=== PATIENT | female | born 1945 | race American Indian/Alaskan Native ===

== ENCOUNTER 2020-08-29 17:28 | Emergency (ER) | payer MEDICARE ==
[~2020-08-29] VITALS: Ht 167.6 cm; Wt 86.6 kg
[~2020-08-29 17:28] MED LIST: ALPRAZOLAM0.5 M1 PO; Ambien10 MG PO; BENADRYL25 MG PO; CLOP75 PO; Cardizem Cd180 MG PO; DILT120ERA PO; DILT90 PO; FLUO10 PO; GLIM2 PO; HYDCHL25 PO; HYDROCODONE-AC1 EAC5 PO; LEVSOD75 PO; LISINOPRIL PO; METFORMIN HCL500 M3 PO; NEURONTIN300 MG PO; NITRO-DUR1 EAC1 TOP; OXYACE5T PO; PRINIVIL10 MG PO; Pepcid40 MG PO; Prednisone20 MG PO; ZESTORETIC 20-121 EA PO; ZOLP10 PO
[2020-08-29 17:59] LABS: BASOPHILS ABSOLUTE AUTO 0.09 K/mm3 (0.00-0.23); BASOPHILS PERCENT AUTO 1 % (0-2); EOSINOPHILS ABSOLUTE AUTO 0.18 K/mm3 (0.00-0.68); EOSINOPHILS PERCENT AUTO 2 % (0-6); Hematocrit 37.9 % (33.0-51.0); Hemoglobin 12.3 g/dL (11.5-16.0); IMMATURE GRAN ABSOLUTE AUTO 0.02 K/mm3 (0.00-0.10); IMMATURE GRAN PERCENT AUTO 0 % (0-1); LYMPHOCYTES ABSOLUTE AUTO 2.94 K/mm3 (0.84-5.20); LYMPHOCYTES PERCENT AUTO 30 % (21-46); MONOCYTES ABSOLUTE AUTO 0.63 K/mm3 (0.16-1.47); MONOCYTES PERCENT AUTO 6 % (4-13); Mean Corpuscular HGB 28.8 pg (26.0-34.0); Mean Corpuscular HGB Conc 32.5 g/dL (31.5-36.5); Mean Corpuscular Volume 89 fL (80-100); Mean Platelet Volume 9.1 fL (9.1-12.4); NEUTROPHILS ABSOLUTE AUTO 6.02 K/mm3 (1.96-9.15); NEUTROPHILS PERCENT AUTO 61 % (41-73); Platelet Count 414 K/mm3 (150-400); RDW Coefficient Variation 12.3 % (11.7-14.2); RDW Standard Deviation 40.4 fL (35.1-46.3); Red Blood Cell Count 4.27 M/mm3 (3.80-5.20); White Blood Cell Count 9.88 K/mm3 (4.00-11.30)
[2020-08-29 18:16] LABS: International Normalized Ratio 0.92; Prothrombin Time Results 9.9 Sec (9.7-11.5)
[2020-08-29 18:18] LABS: Alanine Aminotransfer (ALT/SGP 15 U/L (12-78); Albumin, Blood 3.4 g/dL (3.4-5.0); Albumin/Globulin Ratio 0.7 (0.8-1.8); Alk Phos 105 U/L (50-136); Anion Gap 6 mmol/L (6-16); Aspartate Aminotrans (AST/SGOT 13 U/L (12-37); Bilirubin, Total 0.4 mg/dL (0.1-1.0); Blood Urea Nitrogen 29 mg/dL (8-24); Bun/Creatinine Ratio 31.1 (12.0-20.0); CO2, Blood 28 mmol/L (21-32); Chloride, Blood 104 mmol/L (98-108); Creatinine, Blood 0.93 mg/dL (0.40-1.00); Globulin, Blood 4.6 g/dL (2.2-4.0); Glomerular Filtration Rate >60 (60-); Glucose, Blood 150 mg/dL (70-99); Potassium, Blood 3.6 mmol/L (3.5-5.5); Sodium, Blood 138 mmol/L (136-145)
== END 2020-08-29 20:46 | disposition home or self-care (01) ==
LOC: ER 17:28
PROVIDERS: Physician Assistant
DX: G45.9 Transient cerebral ischemic attack, unspecified (principal); R47.1 Dysarthria and anarthria; E11.9 Type 2 diabetes mellitus without complications; Z88.5 Allergy status to narcotic agent; Z79.02 Long term (current) use of antithrombotics/antiplatelets; Z79.899 Other long term (current) drug therapy; Z79.84 Long term (current) use of oral hypoglycemic drugs
CPT/HCPCS: 36415; 70450; 80053; 85025; 85610; 93005; 93010; 99285-25

== ENCOUNTER 2020-10-16 10:19 | Day surgery (SDC) | payer MEDICARE ==
[~2020-10-16] VITALS: Ht 165.1 cm; Wt 90.5 kg
[~2020-10-16 10:19] MED LIST changes: -DILT120ERA PO; +DILTIAZEM HCL120 M1 PO
[2020-10-16] MEDS ORDERED: XARELTO2.5 MG PO (11:24)
[2020-10-16] MEDS ORDERED: ATOR40TA PO (11:24)
[2020-10-16] MEDS ORDERED: Aspirin EC81 MG PO (11:27)
[2020-10-16] MEDS ORDERED: ALPR.5 PO (11:27)
--- NOTE | 2020-10-16 17:17 | NUR ---
SBAR GIVEN TO SHA Marks RN. R PEDAL SITE AND LEFT GROIN SITE REMAINS CDI NO HEMATOMA NOTED.-CHECKED WITH SHA Marks RN.
--- NOTE | 2020-10-16 17:45 | NUR ---
PATIENT AND SPOUSE VERBALIZED UNDERSTANDING OF DISCHARGE INSTRUCTIONS AND PRECAUTIONS. lEFT GROIN SOFT AND NONTENDER. DRESSING DRY AND INTACT, DRESSING TO RIGHT FOOT INTACT, NO SWELLING OR BLEEDING. PATIENT UP TO RESTROOM WITH STANDBY ASSIST. PATIENT TRANSFERRED TO CAR VIA WHEELCHAIR. SPOUSE DRIVING. NO FURTHER QUESTIONS FROM PATIENT OR SPOUSE.
--- NOTE | 2020-10-16 19:27 | NUR ---
found patients purse in side table drawer. called nursing superviser on casino shift manager and took it to her office. she will call patient
== END 2020-10-16 23:57 | disposition home or self-care (01) ==
LOC: MHTC 10:19
DX: E11.51 Type 2 diabetes mellitus with diabetic peripheral angiopathy without gangrene (principal); I70.213 Atherosclerosis of native arteries of extremities with intermittent claudication, bilateral legs; I63.89 Other cerebral infarction; I10 Essential (primary) hypertension; G47.33 Obstructive sleep apnea (adult) (pediatric); D17.9 Benign lipomatous neoplasm, unspecified; E03.9 Hypothyroidism, unspecified; G47.00 Insomnia, unspecified; Z79.84 Long term (current) use of oral hypoglycemic drugs; Z79.01 Long term (current) use of anticoagulants
CPT/HCPCS: 37226; 37228; 37232; 75716; 75774; 76937; 99152; 99153; C1725; C1760; C1769; C1874; C1887; C1894; J0360; J1644; J2250; J3010; J7030; J7050; Q9967

== ENCOUNTER 2021-01-05 13:32 | Inpatient (IN) | payer MEDICARE ==
[~2021-01-05] VITALS: Ht 167.6 cm; Wt 93.3 kg
[~2021-01-05 13:32] MED LIST changes: +ALPR.5 PO; +ATOR40TA PO; +Aspirin EC81 MG PO; +XARELTO2.5 MG PO
[2021-01-05 14:22] LABS: BASOPHILS ABSOLUTE AUTO 0.07 K/mm3 (0.00-0.23); BASOPHILS PERCENT AUTO 1 % (0-2); EOSINOPHILS ABSOLUTE AUTO 0.23 K/mm3 (0.00-0.68); EOSINOPHILS PERCENT AUTO 3 % (0-6); Hematocrit 35.6 % (33.0-51.0); Hemoglobin 11.7 g/dL (11.5-16.0); IMMATURE GRAN ABSOLUTE AUTO 0.03 K/mm3 (0.00-0.10); IMMATURE GRAN PERCENT AUTO 0 % (0-1); LYMPHOCYTES ABSOLUTE AUTO 1.93 K/mm3 (0.84-5.20); LYMPHOCYTES PERCENT AUTO 24 % (21-46); MONOCYTES ABSOLUTE AUTO 0.58 K/mm3 (0.16-1.47); MONOCYTES PERCENT AUTO 7 % (4-13); Mean Corpuscular HGB 30.1 pg (26.0-34.0); Mean Corpuscular HGB Conc 32.9 g/dL (31.5-36.5); Mean Corpuscular Volume 92 fL (80-100); Mean Platelet Volume 9.5 fL (9.1-12.4); NEUTROPHILS ABSOLUTE AUTO 5.23 K/mm3 (1.96-9.15); NEUTROPHILS PERCENT AUTO 65 % (41-73); Platelet Count 374 K/mm3 (150-400); RDW Coefficient Variation 12.3 % (11.7-14.2); RDW Standard Deviation 41.1 fL (35.1-46.3); Red Blood Cell Count 3.89 M/mm3 (3.80-5.20); White Blood Cell Count 8.07 K/mm3 (4.00-11.30)
[2021-01-05 14:49] LABS: Alanine Aminotransfer (ALT/SGP 16 U/L (12-78); Albumin, Blood 3.5 g/dL (3.4-5.0); Albumin/Globulin Ratio 0.9 (0.8-1.8); Alk Phos 88 U/L (50-136); Anion Gap 1 mmol/L (6-16); Aspartate Aminotrans (AST/SGOT 11 U/L (12-37); Bilirubin, Total 1.1 mg/dL (0.1-1.0); Blood Urea Nitrogen 16 mg/dL (8-24); Bun/Creatinine Ratio 20.3 (12.0-20.0); CO2, Blood 31 mmol/L (21-32); Calcium, Blood 8.6 mg/dL (8.5-10.1); Chloride, Blood 107 mmol/L (98-108); Creatinine, Blood 0.79 mg/dL (0.40-1.00); Globulin, Blood 4.1 g/dL (2.2-4.0); Glomerular Filtration Rate >60 (60-); Glucose, Blood 150 mg/dL (70-99); Potassium, Blood 4.1 mmol/L (3.5-5.5); Sodium, Blood 139 mmol/L (136-145); Total Protein, Blood 7.6 g/dL (6.4-8.2); Troponin I <0.015 ng/mL (0.000-0.040)
[2021-01-05] MEDS ORDERED: CARVEDILOL PO (15:20)
[2021-01-05] MEDS ORDERED: LEVEMIR FL100 UNIT/2 SC (17:27)
[2021-01-05] MEDS ORDERED: ISOSORBIDE MONO30 MG PO (17:28)
[2021-01-05] MEDS ORDERED: NEURONTIN300 MG PO (17:28)
[2021-01-05] MEDS ORDERED: GLIMEPIRIDE2 M2 PO (17:28)
[2021-01-05] MEDS ORDERED: ATOR40TA PO (17:29)
[2021-01-05] MEDS ORDERED: HYDCHL25 PO (17:29)
[2021-01-05] MEDS ORDERED: FLUO10 PO (17:29)
[2021-01-05] MEDS ORDERED: Prinivil10 MG PO (17:29)
[2021-01-05] MEDS ORDERED: PLAVIX75 MG PO (17:30)
[2021-01-05] MEDS ORDERED: SYNTHROID75 MCG PO (17:30)
[2021-01-05] MEDS ORDERED: ALPRAZOLAM0.5 M1 PO (17:30)
[2021-01-05] MEDS ORDERED: METF500C PO (18:52)
--- NOTE | 2021-01-05 20:55 | NUR ---
ASSUMED CARE THIS STUDENT NURSE ASSUMED CARE OF THIS PT AT 2054 FROM ED. PT LYING IN BED, ALERT AND ORIENTED, TALKING WITH STAFF. PT IS ABLE TO STAND/PIVOT WITH STANDBY ASSIST D/T DIZZINESS AND BEING UNSTEADY AND ABLE TO SHIFT HER OWN WEIGHT IN BED. NO DRIPS INFUSING AT THE TIME OF ADMISSION; D/T SBP INCREASING TO >200, NICARDIPINE NOW INFUSING AT 0.5MG/HR TO KEEP SBP <180. PT AT BEDSIDE AND INVOLVED IN PT CARE. SEE ADMISSION ASSESSMENT FOR FURTHER INFORMATION. WILL CONTINUE TO MONITOR.
--- NOTE | 2021-01-06 05:15 | NUR ---
END OF SHIFT SUMMARY PT WAS ADMITTED TO ICU FROM ED FOR HTN EMERGENCY AFTER PRESENTING WITH BENSON, WEAKNESS, SOB, AND HEART PALPITATIONS. SBP AT TIME OF ARRIVAL TO ED WAS 268 THAT WAS MINIMALLY IMPROVED TO 180'S-230'S WITH CLONIDINE 0.2MG AND HYDRALAZINE 20MG. NICARDIPINE GTT STARTED AT 0.1MG IN ICU WITH GOAL SBP OF 180. SBP IMPROVED FROM 200'S TO 180'S-190'S. VS REMAINED STABLE THROUGHOUT SHIFT AT GOAL SBP OF 180'S WITH NICARDIPINE NOW AT RATE IOF 0.75MG/HR. PT ALERT AND ORIENTED WITH SLOW RESPONSE IN CONVERSATION CONTRIBUTABLE TO PMH OF STROKE 2 MONTHS AGO. PT WAS ABLE TO MAKE NEEDS KNOWN TO STAFF AND SHIFT HER OWN WEIGHT IN BED. PT IS A STANDBY ASSIST/PIVOT TO BEDSIDE COMMODE; USES CANE AT HOME BASELINE D/T LT SIDED LEG WEAKNESS R/T SEVERE PAD AND SURGICAL INTERVENTION HX. 22G IV REMOVED FROM RT AC; 20G IV IN RT UPPER ARM SL AND 22G IN LT FA PATENT AND INFUSING NICARDIPINE. NO OTHER CHANGES THIS SHIFT. WILL CONTINUE TO MONITOR UNTIL HAND OFF REPORT GIVEN TO DAY SHIFT RN.
--- NOTE | 2021-01-06 06:45 | NUR ---
AUTOMATIC FOLDER SEAMER DOCUMENTATION REVIEW I HAVE READ AND AGREE WITH ALL NOTES ENTERED BY THE MEDICAL CENTER FOR THIS SHIFT.
[2021-01-06 06:49] LABS: BASOPHILS ABSOLUTE AUTO 0.08 K/mm3 (0.00-0.23); BASOPHILS PERCENT AUTO 1 % (0-2); EOSINOPHILS ABSOLUTE AUTO 0.22 K/mm3 (0.00-0.68); EOSINOPHILS PERCENT AUTO 2 % (0-6); Hematocrit 31.5 % (33.0-51.0); Hemoglobin 10.6 g/dL (11.5-16.0); IMMATURE GRAN ABSOLUTE AUTO 0.02 K/mm3 (0.00-0.10); IMMATURE GRAN PERCENT AUTO 0 % (0-1); LYMPHOCYTES ABSOLUTE AUTO 2.39 K/mm3 (0.84-5.20); LYMPHOCYTES PERCENT AUTO 25 % (21-46); MONOCYTES ABSOLUTE AUTO 0.68 K/mm3 (0.16-1.47); MONOCYTES PERCENT AUTO 7 % (4-13); Mean Corpuscular HGB 30.4 pg (26.0-34.0); Mean Corpuscular HGB Conc 33.7 g/dL (31.5-36.5); Mean Corpuscular Volume 90 fL (80-100); Mean Platelet Volume 9.7 fL (9.1-12.4); NEUTROPHILS ABSOLUTE AUTO 6.33 K/mm3 (1.96-9.15); NEUTROPHILS PERCENT AUTO 65 % (41-73); Platelet Count 339 K/mm3 (150-400); RDW Coefficient Variation 12.5 % (11.7-14.2); RDW Standard Deviation 41.1 fL (35.1-46.3); Red Blood Cell Count 3.49 M/mm3 (3.80-5.20); White Blood Cell Count 9.72 K/mm3 (4.00-11.30)
[2021-01-06 07:14] LABS: Anion Gap 5 mmol/L (6-16); Blood Urea Nitrogen 13 mg/dL (8-24); Bun/Creatinine Ratio 17.2 (12.0-20.0); CO2, Blood 29 mmol/L (21-32); Calcium, Blood 8.3 mg/dL (8.5-10.1); Chloride, Blood 104 mmol/L (98-108); Creatinine, Blood 0.76 mg/dL (0.40-1.00); Glomerular Filtration Rate >60 (60-); Glucose, Blood 139 mg/dL (70-99); Potassium, Blood 3.4 mmol/L (3.5-5.5); Sodium, Blood 138 mmol/L (136-145)
--- NOTE | 2021-01-06 08:40 | NUR ---
INITIAL ASSESSMENT PATIENT RESTING IN BED UPON ENTERING ROOM. PATIENT ALERT AND ORIENTED X 4. PATIENT HAS TEMP OF 99.4 DEGREES FAHRENHEIT; PATIENT STATES SHE USUALLY RUNS WARM. ROOM TEMP ALL THE WAY UP PER PATIENT REQUEST. PATIENT REPORTS NUMBNESS IN BLES. 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 PATIENT USES CANE AT BASELINE FOR UNSTEADINESS LINKED TO HER ARTERIAL DISEASE WELL. PATIENT SBA TO TOILET. PATIENT HAS BEEN REPOSITIONING SELF IN BED. LUNGS CLEAR THROUGHOUT. PATIENT SATTING 90% AND GREATER ON RA. PATIENT SUPPOSED TO WEAR CPAP AT HOME BUT DOES NOT PER REPORT. PATIENT IN SR, HR IN THE 60S. SBP 140S TO 160S. PULSES FAINT IN BILAT FEET. GI WNL. WNL. FEET DUSKY IN APPEARANCE. NICARDIPINE DRIP PLACED ON SB. DR. BRUNSON ORDERED FOR PROCARDIA PO TO START THIS AM, IN ADDITION TO PATIENT'S OTHER HOME BP MEDICATIONS. RENAL DUPLEX PERFORMED THIS AM TO LOOK FOR RENAL STENOSIS. BLOOD SUGAR 137 THIS AM. BED LOW, CALL LIGHT IN REACH. WILL CONTINUE TO MONITOR PATIENT FREQUENTLY THROUGHOUT SHIFT.
--- NOTE | 2021-01-06 11:00 | NUR ---
DR. BRUNSON HERE TO SEE PATIENT. UPDATED ON PATIENT STATUS. INFORMED THAT RENAL DUPLEX PERFORMED THIS AM. INFORMED THAT PATIENT GIVEN THE ORDERED PO PROCARDIA THIS AM AND THAT NICARDIPINE DRIP WAS SHUT OFF.
--- NOTE | 2021-01-06 12:30 | NUR ---
PATIENT HAS TEMP OF 99.3 DEGREES FAHRENHEIT. SBP 90S TO LOW 100S. NICARDIPINE DRIP DC'D IN MORNING. HR REMAINS IN 60S. BLOOD SUGAR OF 182. NO OTHER CHANGES TO NOTE ON AT THIS TIME. PATIENT DENIES PAIN/ DISCOMFORT. WILL CONTINUE TO MONITOR.
--- NOTE | 2021-01-06 15:11 | NUR ---
DR. BRUNSON UPDATED ON PATIENT STATUS. INFORMED THAT SBPS DOWN TO 90S AND HR 50S TO 60S. ORDER FOR 1 L NS BOLUS RECEIVED.
--- NOTE | 2021-01-06 16:36 | NUR ---
NO COMPLAINTS. HR 50S TO 60S. SBP 90S TO 1-TEENS. BLOOD SUGAR OF 121. PATIENT RECEIVING 1 L NS BOLUS. NO OTHER ACUTE CHANGES TO NOTE ON AT THIS TIME. WILL CONTINUE TO MONITOR.
--- NOTE | 2021-01-06 16:58 | NUR ---
DR. BRUNSON CALLED AND UPDATED ON BP AFTER 1 L BOLUS. ORDERS RECEIVED.
--- NOTE | 2021-01-06 18:13 | NUR ---
SHIFT SUMMARY PATIENT HAS REMAINED ALERT AND ORIENTED X 4. PATIENT HAS HAD NO COMPLAINTS OF PAIN THIS SHIFT. PATIENT HAS REMAINED AMBULATING WELL WITH SBA TO TOILET AND SINK. PATIENT REMAINS OFF BALANCE AT TIMES; MOSTLY WITH TURNING. PATIENT HAS REMAINED SATTING 90% AND GREATER ON RA. LUNGS REMAINED CLEAR. PATIENT IN SB TO SR, HR 50S TO 70S. SBP 90S TO 160S. PROCARDIA STARTED THIS AM AND NICARDIPINE DRIP DC'D. BP SOFT THIS AFTERNOON. PATIENT RECEIVED 1 L NS BOLUS. SCHEDULED COREG DC'D. PULSES REMAINED FAINT IN BLES. GI WNL. PATIENT HAD BM TODAY. PATIENT HAD GOOD APPETITE. WNL; GOOD URINE OUTPUT. PATIENT REMAINED REPOSITIONING SELF IN BED. PATIENT GIVEN 40 MEQ KDUR THIS SHIFT FOR POTASSIUM OF 3.4. BLOOD SUGARS RANGED FROM 121 TO 182. PATIENT RECEIVED COMPLETE BED BATH. ECHO ORDERED AND CALLED TO NURSE ASSISTANT MAINTENANCE MANAGER. PATIENT VISITING IN ROOM WITH . NO COMPLAINTS AT THIS TIME. BED LOW, CALL LIGHT IN REACH. REPORT WILL BE GIVEN TO ONCOMING SOIL FERTILITY EXTENSION SPECIALIST NURSE SHORTLY.
--- NOTE | 2021-01-06 21:03 | NUR ---
ASSUMED CARE AT 1900 PT LYING IN BED WITH EYE MASK IN PLACE AND SLEEPING. PERSONAL CARE ITEMS AND CELL PHONE ON BEDSIDE TABLE AND EMPTY MEAL TRAY ON OTHER BEDSIDE TABLE. PT ALERT AND ORIENTED; RESPONDED TO NUT ROASTER HELPER ENTERING ROOM. ABLE TO MAKE NEEDS KNOWN TO STAFF AND MAINTAIN CONVERSATION. PT ABLE TO SHIFT OWN WEIGHT BY TURNING AND ABLE TO BOOST HERSELF IN BED. TELEMETRY ON PT SHOWING NSR WITH PERIODS OF BRADYCARDIA; HR 50'S-60'S AND SBP 130'S-140'S; SPO2 IN 90'S ON RA. PT ASKING QUESTIONS REGARDING DIABETES MANAGEMENT WITH WILLINGNESS TO LEARN. 20G IV IN RT UA PATENT AND SL. NICARDIPINE ON SB AT BEDSIDE. WILL CONTINUE TO MONITOR THROUGHOUT SHIFT.
--- NOTE | 2021-01-07 03:45 | NUR ---
END OF SHIFT SUMMARY NO MAJOR CHANGES THIS SHIFT. PT SLEPT THROUGHOUT SHIFT; EDUCATED ON USE OF CALL LIGHT D/T SELF TRANSFERING TO TOILET IN ROOM WIHTOUT NOTIFYING STAFF. BP REMAINED STABLE AT 157/49 AT THE END OF SHIFT. HANDOFF REPORT GIVEN TO AURA VO.
--- NOTE | 2021-01-07 03:49 | NUR ---
TIP PRINTER DOCUMENTATION REVIEW I HAVE READ ALL NOTES ENTERED BY STUDENT NURSE CHANTEL FOR THIS SHIFT.
--- NOTE | 2021-01-07 08:16 | NUR ---
CARE OF PT ASSUMED AT 0700. PT SLEEPING, AROUSES TO VOICE. AWAKE AND ALERT FOR BREAKFAST, DENIES COMPLAINTS. PT HYPERTENSIVE, SBP >180. BP MEDS GIVEN THIS AM PER ORDERS. WILL RECHECK BP IN A COUPLE HRS. PT HAS ECHO ORDERED FOR TODAY,. POSSIBLE DISCHARGE HOME TODAY IF BP STABLE.
--- NOTE | 2021-01-07 10:58 | NUR ---
ECHO IS GOING TO BE DEFERRED AND BE DONE AN OUTPATIENT THERE IS NOT A FEMALE TECH AVAILABLE; PT REQUEST FEMALE. BP REMAINS ELEVATED AFTER AM BP MEDS. DR BRUNSON CALLED AND GIVEN FULL UPDATE. PROCARDIA 30MG ORDERED FOR NOW.
--- NOTE | 2021-01-07 13:49 | NUR ---
PT GIVEN ADDITIONAL DOSE OF PROCARDIA 30MG. PT FELT "SHAKY" AROUND 2HRS AFTER SECOND DOSE; BP CHECKED AND STABLE. THIS HAS SINCE RESOLVED, PT STATES SHE FEELS BETTER. SBP AROUND 140 NOW.
[2021-01-07] MEDS ORDERED: Nifediac Cc60 MG PO (17:04)
[2021-01-07] MEDS ORDERED: LISI20 PO (17:05)
--- NOTE | 2021-01-07 17:43 | NUR ---
DR BRUNSON PLACED ORDERS FOR PT TO BE DC'D HOME. DR BRUNSON CALLED TO CLARIFY DISCHARGE ORDERS. PT TO FOLLOW UP W PCP AT [facility] IN 3 DAYS. THEY WILL DISCUSE NEED FOR ECHO AT THE F/U APPOINTMENT. PT IS TO HOLD COREG UNTIL F/U APPOINTMENT; AT THIS TIME NEED FOR COREG WILL BE ADDRESSED. PT IS TO START NIFEDIPINE ER 60MG DAILY, LISINOPRIL HAS BEEN CHANGED TO 20MG AT HS. THESE NEW MEDICATIONS WHERE CALLED INTO [facility] IN [place]. PT HAS LISINOPRIL AT HOME AND VERBALIZES UNDERSTANDING OF CHANGES. [facility] IS CLOSED, PT WILL SOFT WORK WRAPPER LAYER AND EXAMINER MEDICATIONS IN AM; PT WILL NOT NEED NIFEDIPINE UNTIL TOMORROW AM. PT VERBALIZES UNDERSTANDING. PT TO CALL IN AM FOR F/U APPOINTMENT [facility] IS CLOSE AT THIS TIME. PT EATING DINNER AWAITING FOR RIDE HOME. VSS.
--- NOTE | 2021-01-07 18:06 | NUR ---
CLARIFICATION: SEVERAL CHANGES BY PHYSICIAN WHERE MADE TO DISCHARGE MEDICATION RECONCILLIATION. ORETIC TO BE DECREASED TO 12.5MG PO DAILY. THIS CHANGE WAS REFLECTED ON PT'S DISCHARGE ORDERS (HAND WRITTEN IN).
--- NOTE | 2021-01-07 19:38 | NUR ---
pt transfer to higher accuity
== END 2021-01-07 17:50 | disposition home or self-care (01) | DRG 305 ==
LOC: ER 13:32 → ICUE 18:00 → ICUW 18:00 → ICUE 18:51 → ICUW 20:46 → ICUE 20:49
PROVIDERS: Emergency Medicine; Nurse Practitioner Acute Care; ADMIT Internal Medicine
DX: I16.1 Hypertensive emergency (principal); I43 Cardiomyopathy in diseases classified elsewhere; I11.9 Hypertensive heart disease without heart failure; I70.1 Atherosclerosis of renal artery; R00.1 Bradycardia, unspecified; I95.9 Hypotension, unspecified; E11.51 Type 2 diabetes mellitus with diabetic peripheral angiopathy without gangrene; G47.00 Insomnia, unspecified; I25.10 Atherosclerotic heart disease of native coronary artery without angina pectoris; G47.33 Obstructive sleep apnea (adult) (pediatric); E78.5 Hyperlipidemia, unspecified; E03.9 Hypothyroidism, unspecified; E66.9 Obesity, unspecified; E87.6 Hypokalemia; Z66 Do not resuscitate; Z98.62 Peripheral vascular angioplasty status; Z86.73 Personal history of transient ischemic attack (TIA), and cerebral infarction without residual deficits; Z68.33 Body mass index [BMI] 33.0-33.9, adult; Z86.79 Personal history of other diseases of the circulatory system; Z91.19 Patient's noncompliance with other medical treatment and regimen; Z88.5 Allergy status to narcotic agent; Z88.8 Allergy status to other drugs, medicaments and biological substances; Z88.6 Allergy status to analgesic agent; Z79.899 Other long term (current) drug therapy; Z79.01 Long term (current) use of anticoagulants; Z79.84 Long term (current) use of oral hypoglycemic drugs; Z79.02 Long term (current) use of antithrombotics/antiplatelets; Z79.82 Long term (current) use of aspirin
CPT/HCPCS: 36415; 71045; 80048; 80053; 82947; 83036; 83880; 84443; 84484; 85025; 93005; 93010; 93975; 94660; 96374; 99284-25; A9270; J0360; J1644; J7030; J7050

== ENCOUNTER 2021-06-07 12:34 | Day surgery (SDC) | payer MEDICARE ==
[~2021-06-07] VITALS: Ht 167.6 cm; Wt 86.3 kg
[~2021-06-07 12:34] MED LIST changes: +CARV25 PO; +CARVEDILOL PO; +GLIMEPIRIDE2 M2 PO; +ISOSORBIDE MONO30 MG PO; +LEVEMIR FL100 UNIT/2 SC; +LISI20 PO; +MERIBIN5 MG PO; +METF500C PO; +Nifediac Cc60 MG PO; +PLAVIX75 MG PO; +Prinivil10 MG PO; +SYNTHROID75 MCG PO; +XARELTO2.5 M1 PO
--- NOTE | 2021-06-07 15:50 | NUR ---
06/07/21 1550 DEMETRIUS ODONNELL 3 SETS OF BP TAKEN 1ST BP WAS LOWER THAN THE 2ND. BROUGHT IN TO BE WITH SHE HAS SOME MEMORY DEFICIT FROM A RECENT STROKE (2 MONTHS AGO) AND WAS EASILY CONFUSED. SHE APPEARED TO BE MUCH MORE COMFORTABLE AND CONFIDENT WHEN CAME BACK.
== END 2021-06-07 15:25 | disposition home or self-care (01) ==
LOC: ORSCSDS 12:34
PROVIDERS: Ophthalmology
PROC: 08RJ3JZ Replacement of Right Lens with Synthetic Substitute, Percutaneous Approach (ICD-10-PCS; principal; 2021-06-07 14:00)
DX: H25.11 Age-related nuclear cataract, right eye (principal); I10 Essential (primary) hypertension; E11.9 Type 2 diabetes mellitus without complications; E03.9 Hypothyroidism, unspecified; Z86.73 Personal history of transient ischemic attack (TIA), and cerebral infarction without residual deficits; Z79.4 Long term (current) use of insulin; Z79.899 Other long term (current) drug therapy; Z79.02 Long term (current) use of antithrombotics/antiplatelets; Z79.82 Long term (current) use of aspirin
CPT/HCPCS: 82947; J2001; J3301; J7040; V2632

== ENCOUNTER → 2021-06-20 | Outpatient (CLI) | payer MEDICARE | END | disposition home or self-care (01) | LOC: LAB SHORT 15:48 → LAB 15:48 | DX: R10.13 Epigastric pain (principal) | CPT/HCPCS: 87338 ==

== ENCOUNTER 2021-06-28 12:28 | Day surgery (SDC) | payer MEDICARE ==
[~2021-06-28] VITALS: Ht 167.6 cm; Wt 90.3 kg
--- NOTE | 2021-06-28 13:22 | NUR ---
06/28/21 1322 Leslee Almonte TETRACAINE EYE DROP TO LEFT EYE AT 1310. PLEDGET TO LEFT EYE AT 1313.
== END 2021-06-28 14:25 | disposition home or self-care (01) ==
LOC: ORSCSDS 12:28
PROVIDERS: Ophthalmology
PROC: 08RK3JZ Replacement of Left Lens with Synthetic Substitute, Percutaneous Approach (ICD-10-PCS; principal; 2021-06-28 14:00)
DX: H25.12 Age-related nuclear cataract, left eye (principal); I10 Essential (primary) hypertension; I25.10 Atherosclerotic heart disease of native coronary artery without angina pectoris; G47.33 Obstructive sleep apnea (adult) (pediatric); N18.30 Chronic kidney disease, stage 3 unspecified; E03.9 Hypothyroidism, unspecified; E11.40 Type 2 diabetes mellitus with diabetic neuropathy, unspecified; Z86.73 Personal history of transient ischemic attack (TIA), and cerebral infarction without residual deficits; Z79.899 Other long term (current) drug therapy; Z79.01 Long term (current) use of anticoagulants; Z79.82 Long term (current) use of aspirin
CPT/HCPCS: 82947; J2001; J2250; J3010; J3301; J7040; V2632

== ENCOUNTER 2021-07-03 15:12 | Emergency (ER) | payer MEDICARE ==
[~2021-07-03] VITALS: Ht 167.6 cm; Wt 86.2 kg
== END 2021-07-03 16:01 | disposition home or self-care (01) ==
LOC: ER 15:12
DX: I69.322 Dysarthria following cerebral infarction (principal); I10 Essential (primary) hypertension; E11.9 Type 2 diabetes mellitus without complications
CPT/HCPCS: 93005; 93010; 99284

== ENCOUNTER 2021-08-08 10:44 | Emergency (ER) | payer MEDICARE ==
[~2021-08-08] VITALS: Ht 167.6 cm; Wt 90.3 kg
[2021-08-08 11:38] LABS: BASOPHILS ABSOLUTE AUTO 0.09 K/mm3 (0.00-0.23); BASOPHILS PERCENT AUTO 1 % (0-2); EOSINOPHILS ABSOLUTE AUTO 0.15 K/mm3 (0.00-0.68); EOSINOPHILS PERCENT AUTO 2 % (0-6); Hematocrit 34.7 % (33.0-51.0); Hemoglobin 11.3 g/dL (11.5-16.0); IMMATURE GRAN ABSOLUTE AUTO 0.03 K/mm3 (0.00-0.10); IMMATURE GRAN PERCENT AUTO 0 % (0-1); LYMPHOCYTES ABSOLUTE AUTO 1.65 K/mm3 (0.84-5.20); LYMPHOCYTES PERCENT AUTO 22 % (21-46); MONOCYTES ABSOLUTE AUTO 0.53 K/mm3 (0.16-1.47); MONOCYTES PERCENT AUTO 7 % (4-13); Mean Corpuscular HGB Conc 32.6 g/dL (31.5-36.5); Mean Corpuscular Volume 89 fL (80-100); Mean Platelet Volume 9.7 fL (9.1-12.4); NEUTROPHILS PERCENT AUTO 68 % (41-73); Platelet Count 404 K/mm3 (150-400); RDW Coefficient Variation 13.5 % (11.7-14.2); RDW Standard Deviation 44.1 fL (35.1-46.3); Red Blood Cell Count 3.89 M/mm3 (3.80-5.20); White Blood Cell Count 7.65 K/mm3 (4.00-11.30)
[2021-08-08 11:45] LABS: Alanine Aminotransfer (ALT/SGP 18 U/L (12-78); Albumin, Blood 3.4 g/dL (3.4-5.0); Albumin/Globulin Ratio 0.8 (0.8-1.8); Alk Phos 92 U/L (50-136); Anion Gap 8 mmol/L (6-16); Aspartate Aminotrans (AST/SGOT 11 U/L (12-37); Bilirubin, Total 0.5 mg/dL (0.1-1.0); Blood Urea Nitrogen 13 mg/dL (8-24); Bun/Creatinine Ratio 16.9 (12.0-20.0); CO2, Blood 28 mmol/L (21-32); Calcium, Blood 9.2 mg/dL (8.5-10.1); Chloride, Blood 105 mmol/L (98-108); Creatinine, Blood 0.77 mg/dL (0.40-1.00); Globulin, Blood 4.2 g/dL (2.2-4.0); Glomerular Filtration Rate >60 (60-); Glucose, Blood 229 mg/dL (70-99); Potassium, Blood 3.7 mmol/L (3.5-5.5); Sodium, Blood 141 mmol/L (136-145); Total Protein, Blood 7.6 g/dL (6.4-8.2)
[2021-08-08] MEDS ORDERED: HYDR1TAB94 PO (17:19)
== END 2021-08-08 17:31 | disposition home or self-care (01) ==
LOC: ER 10:44
PROVIDERS: Emergency Medicine
DX: M79.671 Pain in right foot (principal); Z88.5 Allergy status to narcotic agent; Z88.8 Allergy status to other drugs, medicaments and biological substances; Z79.899 Other long term (current) drug therapy; Z79.4 Long term (current) use of insulin; Z79.82 Long term (current) use of aspirin; I10 Essential (primary) hypertension; E11.9 Type 2 diabetes mellitus without complications
CPT/HCPCS: 80053; 85025; 93922; 93926; 93971; 99284-25; A9270

== ENCOUNTER 2022-04-26 06:24 | Day surgery (SDC) | payer MEDICARE ==
[~2022-04-26] VITALS: Ht 167.6 cm; Wt 86.6 kg
[~2022-04-26 06:24] MED LIST changes: +HYDR1TAB94 PO
--- NOTE | 2022-04-26 08:20 | NUR ---
History, Chart, Medications and Allergies reviewed before start of procedure.
== END 2022-04-26 23:23 | disposition home or self-care (01) ==
LOC: ORSCMMR 06:24 → ORD 07:30 → ORSCMMR 07:30 → ORD 04-30 07:30
PROVIDERS: Surgery
PROC: 0DJ08ZZ Inspection of Upper Intestinal Tract, Via Natural or Artificial Opening Endoscopic (ICD-10-PCS; principal; 2022-04-26 07:30)
DX: K21.9 Gastro-esophageal reflux disease without esophagitis (principal); D50.9 Iron deficiency anemia, unspecified; Z86.73 Personal history of transient ischemic attack (TIA), and cerebral infarction without residual deficits; K44.9 Diaphragmatic hernia without obstruction or gangrene; F32.A Depression, unspecified; F41.9 Anxiety disorder, unspecified; I73.9 Peripheral vascular disease, unspecified; I25.10 Atherosclerotic heart disease of native coronary artery without angina pectoris; E11.9 Type 2 diabetes mellitus without complications; E66.9 Obesity, unspecified; Z68.32 Body mass index [BMI] 32.0-32.9, adult; Z79.01 Long term (current) use of anticoagulants; Z79.82 Long term (current) use of aspirin; Z79.899 Other long term (current) drug therapy
CPT/HCPCS: 82947; J2001; J2704; J7120

== ENCOUNTER 2022-08-05 18:37 | Emergency (ER) | payer MEDICARE ==
[~2022-08-05] VITALS: Ht 167.6 cm; Wt 81.7 kg
[2022-08-05 19:19] LABS: BASOPHILS ABSOLUTE AUTO 0.07 K/mm3 (0.00-0.23); BASOPHILS PERCENT AUTO 1 % (0-2); EOSINOPHILS ABSOLUTE AUTO 0.09 K/mm3 (0.00-0.68); EOSINOPHILS PERCENT AUTO 1 % (0-6); Hematocrit 38.2 % (33.0-51.0); Hemoglobin 13.4 g/dL (11.5-16.0); IMMATURE GRAN ABSOLUTE AUTO 0.03 K/mm3 (0.00-0.10); IMMATURE GRAN PERCENT AUTO 0 % (0-1); LYMPHOCYTES ABSOLUTE AUTO 3.96 K/mm3 (0.84-5.20); LYMPHOCYTES PERCENT AUTO 32 % (21-46); MONOCYTES ABSOLUTE AUTO 0.71 K/mm3 (0.16-1.47); MONOCYTES PERCENT AUTO 6 % (4-13); Mean Corpuscular HGB 29.3 pg (26.0-34.0); Mean Corpuscular HGB Conc 35.1 g/dL (31.5-36.5); Mean Corpuscular Volume 84 fL (80-100); NEUTROPHILS ABSOLUTE AUTO 7.61 K/mm3 (1.96-9.15); NEUTROPHILS PERCENT AUTO 61 % (41-73); Platelet Count 538 K/mm3 (150-400); RDW Coefficient Variation 13.1 % (11.7-14.2); RDW Standard Deviation 39.5 fL (35.1-46.3); Red Blood Cell Count 4.57 M/mm3 (3.80-5.20); White Blood Cell Count 12.47 K/mm3 (4.00-11.30)
[2022-08-05 19:23] LABS: Source, Urine Clean Catch
[2022-08-05 19:36] LABS: Albumin, Blood 3.8 g/dL (3.4-5.0); Albumin/Globulin Ratio 0.7 (0.8-1.8); Bilirubin, Total 0.7 mg/dL (0.1-1.0); Calcium, Blood 9.6 mg/dL (8.5-10.1); Globulin, Blood 5.2 g/dL (2.2-4.0); Magnesium, Blood 2.5 mg/dL (1.6-2.4); Potassium, Blood 4.3 mmol/L (3.5-5.5)
[2022-08-05] MEDS ORDERED: AMLO5 PO (20:13)
[2022-08-05] MEDS ORDERED: JARDIANCE25 MG PO (20:14)
[2022-08-05] MEDS ORDERED: DILT120 PO (20:15)
[2022-08-05] MEDS ORDERED: PANT20 PO (20:16)
[2022-08-05] MEDS ORDERED: METO5A PO (20:17)
[2022-08-05] MEDS ORDERED: DULO30 PO (20:19)
[2022-08-05] MEDS ORDERED: Ropinirole HCl0.5 MG PO (20:20)
[2022-08-05] MEDS ORDERED: VITAMIN D5000 UNIT PO (20:21)
[2022-08-05 20:31] LABS: Appearance, Urine Clear (Clear); Bilirubin, Urine Neg (Neg); Blood, Urine Neg (Neg); Glucose Qualitative, Urine 4+ (Neg); Ketones, Urine Neg (Neg); Leukocyte Esterase, Urine 1+ (Neg); Nitrite, Urine Neg (Neg); Protein, Urine Neg (Neg); Specific Gravity, Urine 1.015 (1.003-1.022); Urobilinogen, Urine NORM (Normal)
[2022-08-05 20:54] LABS: Influenza A, PCR NEGATIVE (NEGATIVE); Influenza B, PCR NEGATIVE (NEGATIVE); Resp Syncytial Virus, PCR NEGATIVE (NEGATIVE); SARS-Cov-2 (COVID-19) PCR, MMC NEGATIVE (NEGATIVE)
[2022-08-05 21:03] LABS: Color, Urine Pale Yellow (P-Yellow)
[2022-08-05 21:04] LABS: Bacteria Few /hpf; Red Blood Cells, Urine 0-2 /hpf (0-2); Squamous Epithelial Cells Few /hpf (Few)
== END 2022-08-05 21:53 | disposition home or self-care (01) ==
LOC: ER 18:37
PROVIDERS: Emergency Medicine
DX: E87.20 Acidosis, unspecified (principal); R25.1 Tremor, unspecified; I10 Essential (primary) hypertension; E11.9 Type 2 diabetes mellitus without complications; Z20.822 Contact with and (suspected) exposure to COVID-19; Z79.82 Long term (current) use of aspirin; Z79.899 Other long term (current) drug therapy; Z79.890 Hormone replacement therapy
CPT/HCPCS: 0241U; 36415; 70450; 70496; 70498; 71045; 80053; 81001; 83605; 83735; 83880; 84484; 85025; 87086; 93005; 93010; J7030; Q9967

== ENCOUNTER → 2023-07-07 | Outpatient (CLI) | payer MEDICARE ==
[~2023-07-07] MED LIST changes: +AMLO5 PO; +DILT120 PO; +DULO30 PO; +JARDIANCE25 MG PO; +METO5A PO; +PANT20 PO; +Ropinirole HCl0.5 MG PO; +VITAMIN D5000 UNIT PO
[2023-07-07 19:00] LABS: Creatinine, Urine Random 44.6 mg/dL (27.00-270.00)
== END | disposition home or self-care (01) ==
LOC: LAB 15:00 → LAB SHORT 15:00
PROVIDERS: Nurse Practitioner Family
DX: E11.65 Type 2 diabetes mellitus with hyperglycemia (principal); E11.42 Type 2 diabetes mellitus with diabetic polyneuropathy
CPT/HCPCS: 82043; 82570

== ENCOUNTER 2023-09-16 14:41 | Emergency (ER) | payer MEDICARE ==
[~2023-09-16] VITALS: Ht 165.1 cm; Wt 59.0 kg
[2023-09-16 14:54] VITALS: BP 162/65
[2023-09-16 15:18] LABS: Hemoglobin 11.9 g/dL (11.5-16.0); Mean Corpuscular HGB 30.1 pg (26.0-34.0); Mean Corpuscular Volume 89 fL (80-100); Mean Platelet Volume 9.2 fL (9.1-12.4); Platelet Count 434 K/mm3 (150-400); RDW Coefficient Variation 12.6 % (11.7-14.2); RDW Standard Deviation 39.8 fL (35.1-46.3); Red Blood Cell Count 3.95 M/mm3 (3.80-5.20); White Blood Cell Count 9.09 K/mm3 (4.00-11.30)
[2023-09-16 15:44] LABS: BAND PERCENT MAN 2 % (0-8); BASOPHILS PERCENT MAN 0 % (0-2); EOSINOPHILS ABSOLUTE MAN 0.18 K/mm3 (0.00-0.68); EOSINOPHILS PERCENT MAN 2 % (0-6); LYMPHOCYTES ABSOLUTE MAN 1.45 K/mm3 (0.84-5.20); LYMPHOCYTES PERCENT MAN 16 % (21-46); MONOCYTES ABSOLUTE MAN 0.45 K/mm3 (0.16-1.47); MONOCYTES PERCENT MAN 5 % (4-13); NEUTROPHILS ABSOLUTE MAN 6.99 K/mm3 (1.96-9.15); SEG NEUTROPHILS PERCENT MAN 75 % (41-73); TOTAL CELLS COUNTED 100
[2023-09-16 15:51] LABS: Albumin, Blood 3.1 g/dL (3.4-5.0); Albumin/Globulin Ratio 0.6 (0.8-1.8); Bilirubin, Total 0.8 mg/dL (0.1-1.0); Bun/Creatinine Ratio 15.7 (12.0-20.0); Calcium, Blood 8.8 mg/dL (8.5-10.1); Creatinine, Blood 0.83 mg/dL (0.40-1.00); Globulin, Blood 4.8 g/dL (2.2-4.0); Potassium, Blood 4.8 mmol/L (3.5-5.5); Total Protein, Blood 7.9 g/dL (6.4-8.2)
== END 2023-09-16 16:39 | disposition left against medical advice (07) ==
LOC: ER 14:41
PROVIDERS: Physician Assistant
DX: R47.01 Aphasia (principal); M54.2 Cervicalgia; Z53.21 Procedure and treatment not carried out due to patient leaving prior to being seen by health care provider
CPT/HCPCS: 70450; 80053; 84484; 85025; 93005; 93010; 99283-25

== ENCOUNTER 2023-09-22 12:25 | Emergency (ER) | payer MEDICARE ==
[~2023-09-22] VITALS: Ht 165.1 cm; Wt 75.3 kg
[2023-09-22 13:24] LABS: BASOPHILS ABSOLUTE AUTO 0.08 K/mm3 (0.00-0.23); BASOPHILS PERCENT AUTO 1 % (0-2); EOSINOPHILS ABSOLUTE AUTO 0.14 K/mm3 (0.00-0.68); EOSINOPHILS PERCENT AUTO 1 % (0-6); Hematocrit 39.2 % (33.0-51.0); IMMATURE GRAN ABSOLUTE AUTO 0.03 K/mm3 (0.00-0.10); IMMATURE GRAN PERCENT AUTO 0 % (0-1); LYMPHOCYTES ABSOLUTE AUTO 2.12 K/mm3 (0.84-5.20); LYMPHOCYTES PERCENT AUTO 20 % (21-46); MONOCYTES ABSOLUTE AUTO 0.73 K/mm3 (0.16-1.47); MONOCYTES PERCENT AUTO 7 % (4-13); Mean Corpuscular HGB 28.5 pg (26.0-34.0); Mean Corpuscular HGB Conc 33.2 g/dL (31.5-36.5); Mean Corpuscular Volume 86 fL (80-100); NEUTROPHILS ABSOLUTE AUTO 7.36 K/mm3 (1.96-9.15); NEUTROPHILS PERCENT AUTO 70 % (41-73); Platelet Count 526 K/mm3 (150-400); RDW Coefficient Variation 12.8 % (11.7-14.2); RDW Standard Deviation 39.8 fL (35.1-46.3); Red Blood Cell Count 4.56 M/mm3 (3.80-5.20); White Blood Cell Count 10.46 K/mm3 (4.00-11.30)
[2023-09-22 13:28] LABS: Albumin, Blood 3.5 g/dL (3.4-5.0); Albumin/Globulin Ratio 0.7 (0.8-1.8); Bilirubin, Total 1.1 mg/dL (0.1-1.0); Bun/Creatinine Ratio 8.1 (12.0-20.0); Calcium, Blood 9.3 mg/dL (8.5-10.1); Creatinine, Blood 0.75 mg/dL (0.40-1.00); Globulin, Blood 4.7 g/dL (2.2-4.0); Potassium, Blood 3.2 mmol/L (3.5-5.5); Total Protein, Blood 8.2 g/dL (6.4-8.2)
[2023-09-22 18:50] VITALS: BP 143/85
[2023-09-22] MEDS ORDERED: CLOP75 PO (19:35)
== END 2023-09-22 20:00 | disposition home or self-care (01) ==
LOC: ER 12:25
PROVIDERS: Student in an Organized Health Care Education/Training Program
DX: I69.322 Dysarthria following cerebral infarction (principal); S16.1XXA Strain of muscle, fascia and tendon at neck level, initial encounter; I10 Essential (primary) hypertension; E11.9 Type 2 diabetes mellitus without complications; X58.XXXA Exposure to other specified factors, initial encounter; Z88.5 Allergy status to narcotic agent; Z79.899 Other long term (current) drug therapy; Z79.890 Hormone replacement therapy; Z79.84 Long term (current) use of oral hypoglycemic drugs; Z79.02 Long term (current) use of antithrombotics/antiplatelets; Z79.82 Long term (current) use of aspirin
CPT/HCPCS: 71046; 80053; 84484; 85025; 93005; 93010; 99284-25

== ENCOUNTER 2024-10-09 16:22 | Inpatient (IN) | payer MEDICARE ==
[~2024-10-09] VITALS: Ht 165.1 cm; Wt 80.6 kg
[2024-10-09 18:46] VITALS: BP 212/65
[2024-10-09 19:41] VITALS: BP 207/66
[2024-10-09] MEDS ORDERED: CYCLOSPORINE1 EACH BOTHEYES (20:58)
[2024-10-09] MEDS ORDERED: DILTIAZEM HCL120 M2 PO (21:00)
[2024-10-09] MEDS ORDERED: LIPITOR80 MG PO (21:03)
[2024-10-09] MEDS ORDERED: PANTOPRAZOLE SO2010 PO (21:13)
[2024-10-09] MEDS ORDERED: NS 1,000 ML IV SCH (21:20)
[2024-10-09] MEDS ORDERED: Ondansetron HCl 2 MG / ML 2ML Vial IV PRN (21:20)
[2024-10-09] MEDS ORDERED: FLU VACC TS2024-25(6MOS UP)/PF 45 MCG/0.5 ML SYRINGE IM SCH (21:25)
[2024-10-10] VITALS (7 sets, daily range): BP systolic 157–243; BP diastolic 58–93
[2024-10-10 06:24] LABS: BASOPHILS ABSOLUTE AUTO 0.12 K/mm3 (0.00-0.23); BASOPHILS PERCENT AUTO 1 % (0-2); EOSINOPHILS ABSOLUTE AUTO 0.19 K/mm3 (0.00-0.68); EOSINOPHILS PERCENT AUTO 2 % (0-6); Hematocrit 35.7 % (33.0-51.0); IMMATURE GRAN ABSOLUTE AUTO 0.03 K/mm3 (0.00-0.10); IMMATURE GRAN PERCENT AUTO 0 % (0-1); LYMPHOCYTES PERCENT AUTO 22 % (21-46); MONOCYTES ABSOLUTE AUTO 1.05 K/mm3 (0.16-1.47); MONOCYTES PERCENT AUTO 11 % (4-13); Mean Corpuscular HGB 29.1 pg (26.0-34.0); Mean Corpuscular HGB Conc 33.6 g/dL (31.5-36.5); Mean Corpuscular Volume 86 fL (80-100); NEUTROPHILS ABSOLUTE AUTO 5.87 K/mm3 (1.96-9.15); NEUTROPHILS PERCENT AUTO 63 % (41-73); Platelet Count 410 K/mm3 (150-400); RDW Coefficient Variation 13.1 % (11.7-14.2); RDW Standard Deviation 41.2 fL (35.1-46.3); Red Blood Cell Count 4.13 M/mm3 (3.80-5.20); White Blood Cell Count 9.26 K/mm3 (4.00-11.30)
--- NOTE | 2024-10-10 06:43 | NUR ---
PT AT APPROX 0650 STATED THAT SHE CANT SEE. PT WAS REACHING OUT WAVING HANDS ABOUT TO REACH FOR PEOPLE. LAST VITALS WERE IN THE 170'S SYSTALIC. PASSED ON TO DAY.
--- NOTE | 2024-10-10 06:43 | NUR ---
SHIFT SUMMARY PT ALERT AND ORIENTED TIMES 3-4 . PT ADMITTED FOR ACUTE KIDNEY INJURY WITH UTI SEPSIS. PT WISHED TO SPEAK WITH DR ABOUT GETTING PORTABLE OXYGEN, SO THAT HE CAN BE MORE MOBILE. PT IS ON TELE WITH A-FIB 97. PT IS ON 2L O2. PT HAD HERNADEZ REMOVED YESTERDAY. PT TOOK SHOWER, WATCHED TV IN CHAIR FOR SEVERAL HOURS BEFORE GOING TO BED. PT BP IS STILL ELEVATED. BED IN LOW POSITION, CALL LIGHT WITHIN REACH, RAILS TIMES 2.
[2024-10-10 06:56] LABS: Alanine Aminotransfer (ALT/SGP 20 U/L (12-78); Albumin, Blood 3.2 g/dL (3.4-5.0); Albumin/Globulin Ratio 0.8 (0.8-1.8); Alk Phos 94 U/L (50-136); Anion Gap 10 mmol/L (3-11); Aspartate Aminotrans (AST/SGOT 27 U/L (12-37); Bilirubin, Total 1.3 mg/dL (0.1-1.0); Blood Urea Nitrogen 35 mg/dL (8-24); Bun/Creatinine Ratio 32.7 (12.0-20.0); CHOL/HDL RATIO 3.7; CO2, Blood 27 mmol/L (21-32); Calcium, Blood 8.5 mg/dL (8.5-10.1); Chloride, Blood 107 mmol/L (98-108); Cholesterol 144 mg/dL (50-200); Creatinine, Blood 1.07 mg/dL (0.40-1.00); Globulin, Blood 3.8 g/dL (2.2-4.0); Glomerular Filtration Rate 53 (60-); Glucose, Blood 187 mg/dL (70-99); HDL Cholesterol 39 mg/dL (>39); LDL/HDL RATIO 2.1; Low Density Lipoprotein Chol 84 mg/dL (0-110); Magnesium, Blood 2.3 mg/dL (1.6-2.4); Potassium, Blood 2.8 mmol/L (3.5-5.5); Sodium, Blood 141 mmol/L (136-145); Triglycerides 106 mg/dL (30-160); Very Low Density Lipoprot Chol 21 mg/dL (6-32)
[2024-10-10] MEDS ORDERED: Potassium Chloride 20 MEQ in NS 90 ML IV ONE (07:55)
[2024-10-10] MEDS ORDERED: Dextrose 10% 500 ML IV SCH (08:00)
[2024-10-10] MEDS ORDERED: Aspirin 81 MG Chew PO SCH (09:00)
[2024-10-10] MEDS ORDERED: Enoxaparin 40 MG/0.4 ML SYR SC SCH (09:00)
[2024-10-10] MEDS ORDERED: Clopidogrel Bisulfate 75 MG Tab PO SCH (09:00)
[2024-10-10] MEDS ORDERED: HydrALAZINE HCl 20 MG / ML 1ML Vial IV PRN ×2 (11:25)
[2024-10-10] MEDS ORDERED: ALPRAZolam 0.5 MG Tab PO PRN (14:00)
--- NOTE | 2024-10-10 17:36 | NUR ---
1100- MD GAVE VERBAL TO DC 10% DEXTROSE FLUIDS, CHANGE DIET TO REG SINCE PT PASSED RN BEDSIDE SWALLOW EVAL. RN INFORMED MD THAT MRI CANNOT BE PERFORMED DUE TO DISORIENTATION FROM PT WELL PT'S . MRI SCREENING FORM CANNOT BE SUCCESSFULLY FILLED OUT.
--- NOTE | 2024-10-10 18:30 | NUR ---
SUMMARY- AAOX2-3 THIS SHIFT. NEURO CHECKS Q4 PERFORMED. EQUAL STRENGTH IN ALL EXTREMITIES. EXPRESSIVE APHASIA PRESENT WITH MILD SLURRED SPEECH. X1 ASSIST TO BSC W/ WALKER AND GAIT BELT. PT ON RA. PT DENIES PAIN THIS SHIFT.
[2024-10-10 18:41] LABS: Source, Urine Clean Catch
[2024-10-10 18:55] LABS: Appearance, Urine Clear (Clear); Bilirubin, Urine Neg (Neg); Blood, Urine Neg (Neg); Color, Urine Yellow (P-Yellow); Glucose Qualitative, Urine 3+ (Neg); Ketones, Urine Neg (Neg); Leukocyte Esterase, Urine 1+ (Neg); Nitrite, Urine Neg (Neg); Protein, Urine 1+ (Neg); Urobilinogen, Urine NORM (Normal)
[2024-10-10 19:07] LABS: Bacteria Few /hpf; Red Blood Cells, Urine Not Seen /hpf (0-2); Squamous Epithelial Cells Rare /hpf (Few)
[2024-10-10] MEDS ORDERED: Metoprolol Tartrate 25 MG Tab PO SCH (21:00)
[2024-10-10] MEDS ORDERED: Acetaminophen 500 MG Tab PO PRN (22:45)
[2024-10-10] MEDS ORDERED: TraMADol HCl 50 MG Tab PO PRN (22:45)
--- NOTE | 2024-10-10 23:44 | NUR ---
NURSE NOTE PATIENT AND SPOUSE WERE ARGUING IN PATIENTS ROOM. BOTH BECAME VERBAL AND PATIENTS ADMITTED HITTING SPOUSE AND TOLD THIS RN THAT PATIENT HIT HIM FIRST. PATIENTS SPOUSE WAS ASKED TO LEAVE. PATIENT LEFT WILLINGLY. SECURITY WAS CALLED AND NOT NEEDED. SECURITY WAS TOLD NOT TO LET SPOUSE VISIT AGAIN.
[2024-10-11 03:47] VITALS: BP 189/61
--- NOTE | 2024-10-11 04:59 | NUR ---
SHIFT SUMMARY PATIENT IS ALERT AND ORIENTED X2 THIS SHIFT. PATIENT HAS HAD NO ACUTE EVENTS OTHER THAN PREVIOUSLY MENTIONED IN PRIOR NOTE. PATIENT HAS REPORTED NO PAIN, NAUSEA, SOB OR VOMITTING THIS SHIFT. PATIENT HAS REPORTED ANXIETY THIS SHIFT. PATIENT HAD GOOD EFFECT WITH XANAX PRN THIS SHIFT. NO EVENTS ON TELE. NEURO CHECKS HAVE REMAINED THE SAME ALL SHIFT. BED IN LOCKED AND LOWEST POSITION. CALL LIGHT IN PLACE.
[2024-10-11] MEDS ORDERED: Pantoprazole Sodium 40 MG Injection IV SCH (06:00)
[2024-10-11] MEDS ORDERED: Levothyroxine Sodium 0.075 MG Tab PO SCH (06:00)
[2024-10-11 08:19] VITALS: BP 191/75
[2024-10-11] MEDS ORDERED: FLUoxetine HCL 20 MG CAP PO SCH (09:00)
[2024-10-11] MEDS ORDERED: Atorvastatin 40 MG Tab PO SCH (09:00)
[2024-10-11] MEDS ORDERED: dilTIAZem HCL 120 MG CAP.CD PO SCH (09:00)
[2024-10-11] MEDS ORDERED: Metoprolol Succinate 25 MG TABCR PO SCH (09:00)
[2024-10-11] MEDS ORDERED: Losartan Potassium 50 MG Tab PO SCH (09:00)
[2024-10-11 09:50] LABS: Hematocrit 36.3 % (33.0-51.0); Hemoglobin 12.5 g/dL (11.5-16.0); Mean Corpuscular HGB 29.5 pg (26.0-34.0); Mean Corpuscular HGB Conc 34.4 g/dL (31.5-36.5); Mean Corpuscular Volume 86 fL (80-100); Mean Platelet Volume 9.8 fL (9.1-12.4); Platelet Count 453 K/mm3 (150-400); RDW Standard Deviation 40.5 fL (35.1-46.3); Red Blood Cell Count 4.24 M/mm3 (3.80-5.20); White Blood Cell Count 9.75 K/mm3 (4.00-11.30)
[2024-10-11 10:12] LABS: Bun/Creatinine Ratio 28.9 (12.0-20.0); Calcium, Blood 9.1 mg/dL (8.5-10.1); Creatinine, Blood 0.93 mg/dL (0.40-1.00); Potassium, Blood 3.4 mmol/L (3.5-5.5)
[2024-10-11] MEDS ORDERED: ALPRAZolam 0.5 MG Tab PO PRN (10:50)
[2024-10-11 12:28] VITALS: BP 172/95
[2024-10-11] MEDS ORDERED: CefTRIAXone Sodium 2,000 MG in NS 100 ML IV SCH (14:50)
[2024-10-11 16:09] VITALS: BP 187/72
--- NOTE | 2024-10-11 16:41 | NUR ---
Patient is sitting on a chair and has many family members present. I had been told from the family that they were hoping for a way to play the Bible audibly for the patient. The spiritual care department has supplied a CD player with some Gospel CDs and Bible story CDs that I supplied the family with. I also showed them how to play the Bible through a Bible connie. They stated they would work on that and they appreciated the all that was brought for the patient. I will continue to remain available to patient and family.
[2024-10-11 19:38] VITALS: BP 190/56
--- NOTE | 2024-10-11 20:01 | NUR ---
SUMMARY- PT A/O X3, PLEASANTLY CONFUSED. RECENT CVA LEAVING PT WITH EXPRESSIVE APHASIA AND VISUAL DEFICITS. PT ABLE TO AMBULATE 1 SBA TO BSC. TOLERATING SOLID FOOD AND NEEDS TO BE FED NOW THAT SHE CANT SEE WELL. CONTINENT OF URINE IN THE BSC. CAME BY TO VISIT X2 TODAY. THE PT AND SPOUCE GOT ALONG WELL AND APPEARED HAPPY TOGETHER, NO NEGATIVE INTERACTONS NOTED. TELE SR 80'S. PERMITTING HIGH BLOOD PRESSURE FOR THE TIME BEING. XANAX X1 TODAY FOR ANXIETY ESPECIALLY AFTER THE DR EXPLAINED HOW THE LOSS OF EYE SIGHT MAY BE PERMINANT. PT WAS VISIBALLY UPSET. REPORTED TO BHUPINDER DUFF
[2024-10-11] MEDS ORDERED: Calcium Carbonate 500 MG Tab Chew PO PRN (21:15)
[2024-10-12 00:22] VITALS: BP 178/66
--- NOTE | 2024-10-12 04:05 | NUR ---
SHIFT SUMMARY ADMITTED FOR CVA. FULL CODE. ANTIB RX ARE SCHEDULED. WE ARE ALLOWING PERMISSIVE HTN. TELEMETRY: KAYE @ 60 BPM. REGULAR DIET - FEEDER. ON RA. STANDBY ASSIST TO BSC. VISUAL FIELD IS LIMITED. HX OF PREVIOUS CVA. A&O X2, BUT REDIRECTABLE. Q4 NEURO CHECKS.
[2024-10-12 04:15] VITALS: BP 216/61
[2024-10-12 06:08] LABS: Hematocrit 35.7 % (33.0-51.0); Hemoglobin 12.1 g/dL (11.5-16.0)
[2024-10-12 06:39] LABS: Bun/Creatinine Ratio 30.4 (12.0-20.0); Calcium, Blood 8.9 mg/dL (8.5-10.1); Creatinine, Blood 1.02 mg/dL (0.40-1.00); Magnesium, Blood 2.2 mg/dL (1.6-2.4); Potassium, Blood 3.2 mmol/L (3.5-5.5)
[2024-10-12 07:45] VITALS: BP 244/85
[2024-10-12] MEDS ORDERED: Losartan Potassium 25 MG Tab PO SCH (09:00)
--- NOTE | 2024-10-12 09:49 | NUR ---
pATIENT GAVE VERBAL PERMISSION TO WORK WITH STUDENT NURSE.
[2024-10-12 11:58] VITALS: BP 213/70
[2024-10-12] MEDS ORDERED: Potassium Chloride 10 Meq Tablet SA PO ONE (15:45)
--- NOTE | 2024-10-12 17:22 | NUR ---
Short spiritual care visit today. Patient and family are well and appreciate the visit. 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 I will continue to remain available to patient and family.
--- NOTE | 2024-10-12 18:36 | NUR ---
SUMMARY- PT A/O X3, MOD CONFUSION/FORGETFULNESS. RECENT CVA WITH SEVERE VISUAL DEFICITS AND EXPRESSIVE APHASIA. PT IS ABLE TO AMBULATE FROM BED TO CHAIR CLOSE BY, WITH ADQ STRENGTH AND MILDLY UNSTEADY GAIT. PT IS CONTINENT OF URNINE AND USES BEDSIDE COMMODE. PT TOLERATING FOOD AND FLUID, NEEDS CUING TO DRINK WATER, PT IS A FEEDER RELATED TO POOR VISION. MRI COMPLETED TODAY. HERE TO VISIT ON/OFF, SECURITY WHEELS HIM IN/OUT OF HOSPITAL. NO FIGHTS WITNESSED BETWEEN COUPLE, THEY APPEAR TO GET ALONG WELL. PT WORKED WITH PT/OT TODAY. PLAN FOR SNF WHEN BED AVAIL AND MED STABLE. WILL REPORT TO BHUPINDER CHAVARRIA
[2024-10-12 21:03] VITALS: BP 207/73
[2024-10-13] VITALS (8 sets, daily range): BP systolic 155–245; BP diastolic 48–93
--- NOTE | 2024-10-13 04:10 | NUR ---
SHIFT SUMMARY PATIENT HAD NO ACUTE CHANGES. ALERT ORIENTED WITH EXPRESSIVE ASPHAGIA AND VISION LOSS SEEING ONLY SHADOWS. ONE ASSIST FWW/GB TO BSC. PIV INTACT. TELE MONITOR SB 58. DENIES CHEST PAIN, SOB, AND N/V. PERMISSIVE HYPERTENSION. IV APRESOLINE GIVEN FOR SBP >220 X ONE. XANAX 0.5 MG GIVEN FOR INSOMNIA REPORTING HAS NOT SLEPT WELL IN 4 DAYS. CALL LIGHT IN REACH. BED IN LOWEST POSITION. WILL CONTINUE TO MONITOR UNTIL DAY SHIFT NURSE ASSUMES CARE.
[2024-10-13 05:46] LABS: Hematocrit 34.3 % (33.0-51.0); Hemoglobin 11.4 g/dL (11.5-16.0)
[2024-10-13 06:30] LABS: Bun/Creatinine Ratio 25.2 (12.0-20.0); Calcium, Blood 8.9 mg/dL (8.5-10.1); Creatinine, Blood 0.91 mg/dL (0.40-1.00); Magnesium, Blood 2.3 mg/dL (1.6-2.4); Potassium, Blood 3.5 mmol/L (3.5-5.5)
[2024-10-13 06:54] LABS: Potassium, Blood 3.4 mmol/L (3.5-5.5)
[2024-10-13 06:55] LABS: Albumin, Blood 3.4 g/dL (3.4-5.0); Albumin/Globulin Ratio 0.8 (0.8-1.8); Bilirubin, Total 1.1 mg/dL (0.1-1.0); Bun/Creatinine Ratio 35.3 (12.0-20.0); Calcium, Blood 8.7 mg/dL (8.5-10.1); Creatinine, Blood 1.33 mg/dL (0.40-1.00); Globulin, Blood 4.4 g/dL (2.2-4.0); Total Protein, Blood 7.8 g/dL (6.4-8.2)
[2024-10-13 06:56] LABS: Hematocrit 35.8 % (33.0-51.0); Hemoglobin 12.7 g/dL (11.5-16.0); Mean Corpuscular HGB Conc 35.5 g/dL (31.5-36.5); Mean Corpuscular Volume 85 fL (80-100); Platelet Count 452 K/mm3 (150-400); RDW Coefficient Variation 12.9 % (11.7-14.2); RDW Standard Deviation 39.3 fL (35.1-46.3); Red Blood Cell Count 4.23 M/mm3 (3.80-5.20); White Blood Cell Count 11.09 K/mm3 (4.00-11.30)
[2024-10-13 06:57] LABS: BASOPHILS ABSOLUTE AUTO 0.07 K/mm3 (0.00-0.23); BASOPHILS PERCENT AUTO 1 % (0-2); EOSINOPHILS ABSOLUTE AUTO 0.17 K/mm3 (0.00-0.68); EOSINOPHILS PERCENT AUTO 2 % (0-6); IMMATURE GRAN ABSOLUTE AUTO 0.05 K/mm3 (0.00-0.10); IMMATURE GRAN PERCENT AUTO 1 % (0-1); LYMPHOCYTES ABSOLUTE AUTO 2.42 K/mm3 (0.84-5.20); LYMPHOCYTES PERCENT AUTO 22 % (21-46); MONOCYTES ABSOLUTE AUTO 0.93 K/mm3 (0.16-1.47); MONOCYTES PERCENT AUTO 8 % (4-13); NEUTROPHILS ABSOLUTE AUTO 7.45 K/mm3 (1.96-9.15); NEUTROPHILS PERCENT AUTO 67 % (41-73)
[2024-10-13 07:02] LABS: Source, Urine Clean Catch
[2024-10-13 07:03] LABS: Appearance, Urine Clear (Clear); Bacteria Mod /hpf; Bilirubin, Urine Neg (Neg); Blood, Urine 1+ (Neg); Color, Urine Pale Yellow (P-Yellow); Glucose Qualitative, Urine 3+ (Neg); Ketones, Urine Neg (Neg); Leukocyte Esterase, Urine 3+ (Neg); Nitrite, Urine Neg (Neg); Protein, Urine 1+ (Neg); Red Blood Cells, Urine 0-2 /hpf (0-2); Squamous Epithelial Cells Few /hpf (Few); Urobilinogen, Urine NORM (Normal)
[2024-10-13] MEDS ORDERED: HydrALAZINE HCl 20 MG / ML 1ML Vial IV PRN ×2 (07:45→11:20)
[2024-10-13] MEDS ORDERED: NS 250 ML IV PRN (08:15)
[2024-10-13] MEDS ORDERED: Losartan Potassium 50 MG Tab PO SCH (09:00)
--- NOTE | 2024-10-13 11:00 | NUR ---
THIS RN NOTIFIED OF PT'S ELEVATED BP. PT ASYMPTOMATIC. PROVIDER TO CHANGE PARAMETERS IN EMAR FOR PRN HYDRALAZINE.
--- NOTE | 2024-10-13 17:23 | NUR ---
SHIFT SUMMARY PT A&OX4 W/ EXPRESSIVE APHASIA, CONT TO SEE SHADOWS ONLY, AMB W/ ASSIST TO THE BSC, TOLERATING PO, VOIDING, AND DENIED PAIN. PT HYPERTENSIVE, BUT ASYMPTOMATIC. SEE PREVIOUS NOTE. HYDRALAZINE GIVEN X1 W/ IMPROVEMENT. LAST BP THIS SHIFT WAS 155/48. OCCUPATIONAL AND PHYSICAL THERAPY DID NOT WORK W/ PT DUE TO BP. NO OTHER ACUTE CHANGES. AWAITING SNF PLACEMENT. CALL LIGHT WITHIN REACH AND ABLE TO MAKE NEEDS KNOWN.
--- NOTE | 2024-10-13 17:51 | NUR ---
THIS RN REQUESTED IN ROOM BY PT'S . PT'S STATED THAT THE PT WANTED TO GO HOME. THIS RN SPOKE W/ PT ABOUT LEAVING AGAINST MEDICAL ADVICE AND WAS EDUCATED ON THE RISKS AND BENEFITS. PT STATED THAT SHE "CHANGED HER MIND" AND WOULD STAY. THIS RN NOTIFIED AND REAL ESTATE PARALEGAL'S.
[2024-10-14 00:27] VITALS: BP 171/50
--- NOTE | 2024-10-14 04:06 | NUR ---
ICE CREAM FREEZER ASSISTANT SUMMARY BP ELEVATED, OTHERWISE VSS. RECEIVED ANTIHYPERTENSIVE MED AND BP SLOWLY DROPPING - SEE DOC FLOW SHEETS. ALERT AND OREINTED, BUT VERBAL RESPONSE INTERMITTENTLY MUMBLED, (EXPRESSIVE APHASIA), WAS REPORTED BY AM NURSE WELL. HAS BEEN RESTING QUIETLY WITH FEW INTERRUPTIONS. AWAKE AT THIS TIME, VOICED FEELING OK. MED TELE SR IN THE 60'S. CALL LIGHT IN REACH, RAILS UP X 2 AND BED IN LOW POSITION FOR SAFETY. WILL CONT TO MONITOR
[2024-10-14 04:52] VITALS: BP 196/66
[2024-10-14 05:46] LABS: Hematocrit 36.2 % (33.0-51.0); Hemoglobin 12.1 g/dL (11.5-16.0)
[2024-10-14 06:23] LABS: Creatinine, Blood 1.09 mg/dL (0.40-1.00); Magnesium, Blood 2.4 mg/dL (1.6-2.4); Potassium, Blood 3.7 mmol/L (3.5-5.5)
[2024-10-14 07:59] VITALS: BP 198/74
[2024-10-14] MEDS ORDERED: CloNIDine 0.1 MG Tab PO SCH (09:00)
[2024-10-14 11:33] VITALS: BP 161/63
[2024-10-14 14:34] VITALS: BP 142/57
[2024-10-14] MEDS ORDERED: TRAM50 PO (14:51)
[2024-10-14] MEDS ORDERED: LOSA50 PO (14:51)
[2024-10-14] MEDS ORDERED: CATAPRES0.1 MG PO (14:51)
[2024-10-14] MEDS ORDERED: HYDR100 PO (14:52)
[2024-10-14] MEDS ORDERED: CEFD300 PO (14:52)
[2024-10-14 15:57] VITALS: BP 160/57
--- NOTE | 2024-10-14 18:12 | NUR ---
THIS RN CALLED [facility] AND GAVE REPORT TO WM CHAVARRIA.
--- NOTE | 2024-10-14 18:23 | NUR ---
DISCHARGE NOTE PT D/C TO SNF. PT A&OX4, VSS, AMB W/ ASSIST, TOLERATING PO, VOIDING, AND DENIED PAIN. BELONGINGS WERE RETURNED AND D/C PACKET GIVEN TO TRANSPORT. HARD SCRIPT IN PACKET. REPORT GIVEN TO SNF RN, SEE PREVIOUS NOTE. PT ESCOURTED OUT VIA W/C BY TRANSPORT.
== END 2024-10-14 18:26 | DRG 65 ==
LOC: ER 16:22 → MEDS 18:57
PROVIDERS: Hospitalist; Nurse Practitioner Acute Care; ADMIT Emergency Medicine
DX: I63.9 Cerebral infarction, unspecified (principal); I50.32 Chronic diastolic (congestive) heart failure; J45.909 Unspecified asthma, uncomplicated; G89.29 Other chronic pain; F32.A Depression, unspecified; E03.9 Hypothyroidism, unspecified; F41.9 Anxiety disorder, unspecified; R47.01 Aphasia; I11.0 Hypertensive heart disease with heart failure; Z88.5 Allergy status to narcotic agent; Z87.442 Personal history of urinary calculi; Z87.440 Personal history of urinary (tract) infections; Z87.01 Personal history of pneumonia (recurrent); Z79.899 Other long term (current) drug therapy; Z90.49 Acquired absence of other specified parts of digestive tract; Z98.890 Other specified postprocedural states; Z98.51 Tubal ligation status; Z90.12 Acquired absence of left breast and nipple
CPT/HCPCS: 36415; 70450; 70551; 80048; 80053; 80061; 81001; 82947; 83735; 85014; 85018; 85025; 85027; 93005; 93306; 97110; 97116; 97162; 97165; 97530; 97535; 99285-25; A9270; J0360; J0696; J1650; J2470; J3480; J7030; J7050

== ENCOUNTER 2024-11-21 11:18 | Emergency (ER) | payer MEDICARE ==
[~2024-11-21] VITALS: Ht 167.6 cm; Wt 90.7 kg
[~2024-11-21 11:18] MED LIST changes: +CATAPRES0.1 MG PO; +CEFD300 PO; +CYCLOSPORINE1 EACH BOTHEYES; +DILTIAZEM HCL120 M2 PO; +HYDR100 PO; +LIPITOR80 MG PO; +LOSA50 PO; +PANTOPRAZOLE SO2010 PO; +TRAM50 PO
--- NOTE | 2024-11-21 13:47 | NUR ---
A GENTLEMAN AND A WOMAN APPROACHED IRU DESK ASKING WHICH ROOM PATIENT WAS IN. PATIENT IS NOT ON OUR FLOOR. GENTLEMAN AND WOMAN WERE GOING TO GO BACK TO THE EMERGENCY DEPARTMENT TO LOOK FOR HER. CALL TO ER TO NOTIFY THEM THE LAST CHART NOTE IN PATIENT'S CHART STATES THAT WAS AGGRESSIVE c STAFF AND REMOVED BY SECURITY.
[2024-11-21 13:50] VITALS: BP 180/75
== END 2024-11-21 15:12 | disposition home or self-care (01) ==
LOC: ER 11:18
DX: I10 Essential (primary) hypertension (principal); E11.649 Type 2 diabetes mellitus with hypoglycemia without coma; E03.9 Hypothyroidism, unspecified; J45.909 Unspecified asthma, uncomplicated; Z88.5 Allergy status to narcotic agent; Z79.890 Hormone replacement therapy; Z79.899 Other long term (current) drug therapy; Z79.82 Long term (current) use of aspirin
CPT/HCPCS: 82947; 99285

== ENCOUNTER 2024-11-25 11:02 | Emergency (ER) | payer MEDICARE ==
[~2024-11-25] VITALS: Ht 167.6 cm; Wt 68.5 kg
[2024-11-25 11:13] VITALS: BP 215/71
== END 2024-11-25 15:17 | disposition left against medical advice (07) ==
LOC: ER 11:02
DX: R42 Dizziness and giddiness (principal); Z53.29 Procedure and treatment not carried out because of patient's decision for other reasons
CPT/HCPCS: 93005; 93010; 99281-25

== ENCOUNTER 2025-03-04 13:02 | Emergency (ER) | payer MEDICARE ==
[~2025-03-04] VITALS: Ht 165.1 cm; Wt 69.0 kg
[2025-03-04 13:39] VITALS: BP 159/63
== END 2025-03-04 14:20 | disposition home or self-care (01) ==
LOC: ER 13:02
DX: Z00.8 Encounter for other general examination (principal); G30.9 Alzheimer's disease, unspecified; F02.80 Dementia in other diseases classified elsewhere, unspecified severity, without behavioral disturbance, psychotic disturbance, mood disturbance, and anxiety; E11.9 Type 2 diabetes mellitus without complications; I10 Essential (primary) hypertension; E03.9 Hypothyroidism, unspecified; G47.33 Obstructive sleep apnea (adult) (pediatric); J45.909 Unspecified asthma, uncomplicated; I69.312 Visuospatial deficit and spatial neglect following cerebral infarction; Z88.5 Allergy status to narcotic agent; Z79.890 Hormone replacement therapy; Z79.84 Long term (current) use of oral hypoglycemic drugs; Z79.82 Long term (current) use of aspirin; Z79.02 Long term (current) use of antithrombotics/antiplatelets; Z79.899 Other long term (current) drug therapy; Z59.89 Other problems related to housing and economic circumstances
CPT/HCPCS: 99282

== ENCOUNTER 2025-04-28 19:37 | Observation (INO) | payer MEDICARE ==
[~2025-04-28] VITALS: Ht 165.1 cm; Wt 86.5 kg
[~2025-04-28 19:37] MED LIST changes: +NIFE90ER PO; -Nifediac Cc60 MG PO
[2025-04-28 20:20] LABS: BASOPHILS ABSOLUTE AUTO 0.13 K/mm3 (0.00-0.23); BASOPHILS PERCENT AUTO 1 % (0-2); EOSINOPHILS ABSOLUTE AUTO 0.23 K/mm3 (0.00-0.68); EOSINOPHILS PERCENT AUTO 2 % (0-6); Hematocrit 30.4 % (33.0-51.0); Hemoglobin 10.3 g/dL (11.5-16.0); IMMATURE GRAN ABSOLUTE AUTO 0.06 K/mm3 (0.00-0.10); IMMATURE GRAN PERCENT AUTO 0 % (0-1); LYMPHOCYTES ABSOLUTE AUTO 4.49 K/mm3 (0.84-5.20); LYMPHOCYTES PERCENT AUTO 30 % (21-46); MONOCYTES ABSOLUTE AUTO 1.07 K/mm3 (0.16-1.47); MONOCYTES PERCENT AUTO 7 % (4-13); Mean Corpuscular HGB Conc 33.9 g/dL (31.5-36.5); Mean Corpuscular Volume 89 fL (80-100); NEUTROPHILS ABSOLUTE AUTO 8.84 K/mm3 (1.96-9.15); NEUTROPHILS PERCENT AUTO 60 % (41-73); NRBC ABSOLUTE 0.00 K/mm3 (0.00-0.02); NRBC Auto 0.0 /100 WBC (0.0-0.2); Platelet Count 432 K/mm3 (150-400); RDW Coefficient Variation 12.3 % (11.7-14.2); RDW Standard Deviation 40.3 fL (35.1-46.3)
[2025-04-28 20:36] LABS: Alanine Aminotransfer (ALT/SGP 13 U/L (12-78); Albumin, Blood 4.0 g/dL (3.4-5.0); Albumin/Globulin Ratio 1.0 (0.8-1.8); Anion Gap 14 mmol/L (3-11); Aspartate Aminotrans (AST/SGOT 15 U/L (12-37); Bilirubin, Total 0.7 mg/dL (0.1-1.0); Blood Urea Nitrogen 33 mg/dL (8-24); CO2, Blood 21 mmol/L (21-32); Calcium, Blood 9.0 mg/dL (8.5-10.1); Chloride, Blood 104 mmol/L (98-108); Creatinine, Blood 2.09 mg/dL (0.40-1.00); Ethanol (Alcohol), Blood, Med <3 mg/dL; Globulin, Blood 3.9 g/dL (2.2-4.0); Glucose, Blood 143 mg/dL (70-99); Potassium, Blood 4.6 mmol/L (3.5-5.5); Sodium, Blood 134 mmol/L (136-145); Total Protein, Blood 7.9 g/dL (6.4-8.2)
[2025-04-28] MEDS ORDERED: NS 1,000 ML IV SCH ×2 (21:25→23:45)
[2025-04-28 21:55] LABS: Source, Urine Straight Cath
[2025-04-28 21:58] LABS: Bilirubin, Urine Neg (Neg); Glucose Qualitative, Urine Neg (Neg); Ketones, Urine 1+ (Neg); Leukocyte Esterase, Urine 3+ (Neg); Protein, Urine 2+ (Neg); Specific Gravity, Urine 1.015 (1.003-1.022); Urobilinogen, Urine NORM (Normal)
[2025-04-28 22:05] LABS: Color, Urine Yellow (P-Yellow)
[2025-04-28 22:08] LABS: Red Blood Cells, Urine 0-2 /hpf (0-2); White Blood Cells, Urine TNTC /hpf (0-5)
[2025-04-28] MEDS ORDERED: CefTRIAXone Sodium 1,000 MG in NS 100 ML IV ONE (23:30)
[2025-04-29] MEDS ORDERED: NS 1,000 ML IV ONE (00:15)
[2025-04-29] MEDS ORDERED: Ondansetron HCl 2 MG / ML 2ML Vial IV PRN (00:15)
[2025-04-29 01:51] LABS: pH Blood Venous 7.46 (7.34-7.37)
[2025-04-29 02:07] LABS: Magnesium, Blood 2.2 mg/dL (1.6-2.4); Phosphorus, Blood 2.9 mg/dL (2.5-4.9)
[2025-04-29 02:48] VITALS: BP 152/61
[2025-04-29 06:26] LABS: BASOPHILS ABSOLUTE AUTO 0.11 K/mm3 (0.00-0.23); BASOPHILS PERCENT AUTO 1 % (0-2); EOSINOPHILS ABSOLUTE AUTO 0.20 K/mm3 (0.00-0.68); EOSINOPHILS PERCENT AUTO 2 % (0-6); Hematocrit 29.6 % (33.0-51.0); Hemoglobin 9.9 g/dL (11.5-16.0); IMMATURE GRAN ABSOLUTE AUTO 0.04 K/mm3 (0.00-0.10); IMMATURE GRAN PERCENT AUTO 0 % (0-1); LYMPHOCYTES ABSOLUTE AUTO 3.01 K/mm3 (0.84-5.20); LYMPHOCYTES PERCENT AUTO 22 % (21-46); MONOCYTES ABSOLUTE AUTO 0.92 K/mm3 (0.16-1.47); MONOCYTES PERCENT AUTO 7 % (4-13); Mean Corpuscular HGB Conc 33.4 g/dL (31.5-36.5); Mean Corpuscular Volume 91 fL (80-100); NEUTROPHILS ABSOLUTE AUTO 9.13 K/mm3 (1.96-9.15); NEUTROPHILS PERCENT AUTO 68 % (41-73); NRBC ABSOLUTE 0.00 K/mm3 (0.00-0.02); NRBC Auto 0.0 /100 WBC (0.0-0.2); Platelet Count 405 K/mm3 (150-400); RDW Coefficient Variation 12.5 % (11.7-14.2); RDW Standard Deviation 41.6 fL (35.1-46.3)
[2025-04-29 06:50] LABS: Alanine Aminotransfer (ALT/SGP 15.0 U/L (12-78); Albumin, Blood 3.6 g/dL (3.4-5.0); Albumin/Globulin Ratio 0.9 (0.8-1.8); Anion Gap 9.0 mmol/L (3-11); Aspartate Aminotrans (AST/SGOT 12.0 U/L (12-37); Bilirubin, Total 0.8 mg/dL (0.1-1.0); Blood Urea Nitrogen 29.0 mg/dL (8-24); CO2, Blood 22.0 mmol/L (21-32); Calcium, Blood 8.6 mg/dL (8.5-10.1); Chloride, Blood 111.0 mmol/L (98-108); Creatinine, Blood 1.71 mg/dL (0.40-1.00); Globulin, Blood 4.0 g/dL (2.2-4.0); Glucose, Blood 116.0 mg/dL (70-99); Potassium, Blood 4.0 mmol/L (3.5-5.5); Sodium, Blood 138.0 mmol/L (136-145); Total Protein, Blood 7.6 g/dL (6.4-8.2)
[2025-04-29 07:06] VITALS: BP 167/71
--- NOTE | 2025-04-29 07:42 | NUR ---
Shift Summary Patient arrived to unit around 0300 by gurney transport, here for LISA, UTI, and sepsis. AOx3-4. 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 She is able to make needs known and is aware of her deficits. States that she can hear great. Tele: SR 68 w/ 1st degree HB per tele monitor. Uses walker at baseline. 1PA FWW to bedside commode. Bed alarm on. Currently with room air; however, patient verbalized that she has a diagnosis of sleep apnea and had a cpap machine once but she did not tolerate it and, now, does not know where it is. She is asking that I provide one for her to use while hospitalized. Will defer this to day shift. Denies pain, nausea, diarrhea. 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 She also states that she has other private pay part-time caregivers that come to the house to assist with meal prep and other needs. Med rec incomplete, patient states Dennis helps with medication administration and will be the right person to reconcile medications with. NS@75 x1 bag currently infusing.
[2025-04-29] MEDS ORDERED: Enoxaparin 30 MG/0.3 ML SYR SC SCH (09:00)
[2025-04-29] MEDS ORDERED: BASAGLAR K100 UNIT/1 SC (10:17)
[2025-04-29] MEDS ORDERED: CHOLESTYRAMI239.4 G1 PO (10:19)
--- NOTE | 2025-04-29 10:44 | NUR ---
"Spiritual Care | Pt. Request Pt. is awake in bed when she welcomes my visit. Pt. has a guest at bedside who identified himself as the Pts. caregiver. Exchange pleasantries. This classification and treatment director agreed to return at a later time as the Pt. had bedside guests. Pt. verbalized gratitude for the spiritual care attempt."
[2025-04-29 11:02] VITALS: BP 138/52
[2025-04-29 14:32] LABS: Alanine Aminotransfer (ALT/SGP 14.0 U/L (12-78); Albumin, Blood 3.6 g/dL (3.4-5.0); Albumin/Globulin Ratio 0.9 (0.8-1.8); Anion Gap 9.0 mmol/L (3-11); Aspartate Aminotrans (AST/SGOT 12.0 U/L (12-37); Bilirubin, Total 0.7 mg/dL (0.1-1.0); Blood Urea Nitrogen 23.0 mg/dL (8-24); CO2, Blood 21.0 mmol/L (21-32); Calcium, Blood 8.4 mg/dL (8.5-10.1); Chloride, Blood 110.0 mmol/L (98-108); Creatinine, Blood 1.34 mg/dL (0.40-1.00); Globulin, Blood 3.9 g/dL (2.2-4.0); Glucose, Blood 143.0 mg/dL (70-99); Potassium, Blood 4.2 mmol/L (3.5-5.5); Sodium, Blood 136.0 mmol/L (136-145); Total Protein, Blood 7.5 g/dL (6.4-8.2)
[2025-04-29 16:04] VITALS: BP 122/93
[2025-04-29] MEDS ORDERED: Insulin Regular 100 UNIT/ML 10ML Vial SC SCH (16:30)
--- NOTE | 2025-04-29 17:50 | NUR ---
NO ACUTE CHANGES, WORKED WITH ST, PATIENT AT BASELINE FROM STROKE 6 MONTHS AGO, EYESIGHT CONTINUES TO FAIL, ONE PERSON ASSIST, TO BSC, COOPERATIVE TO CARE, FAMILY VISITED THROUGH OUT THE DAY, PLEASSANT TO CARE. CALL LIGHT WITH IN REACH, WILL RLEAY TO PM RN
[2025-04-29 19:19] VITALS: BP 124/94
[2025-04-29] MEDS ORDERED: CefTRIAXone Sodium 1,000 MG in NS 100 ML IV SCH (21:00)
[2025-04-29 21:31] VITALS: BP 185/81
[2025-04-30 00:06] VITALS: BP 159/57
--- NOTE | 2025-04-30 03:46 | NUR ---
NNO ACUTE CHANGES DURING SHIFT. PATIENT ALERT AND ORIENTED X4 AND ABLE TO MAKE NEEDS KNOWN. PATIENT ON ROOM AIR. PATIENT IS A SBA TO BATHROOM. IV ANTIBIOTICS GIVEN. NO COMPLAINTS OF CHEST PAIN OR SOB. BED IS IN LOW POSITION WITH WHEELS LOCKED. CALL LIGHT WITHIN REACH
[2025-04-30 04:23] VITALS: BP 156/64
[2025-04-30 07:30] VITALS: BP 142/52
[2025-04-30 10:28] LABS: BASOPHILS ABSOLUTE AUTO 0.09 K/mm3 (0.00-0.23); BASOPHILS PERCENT AUTO 1 % (0-2); EOSINOPHILS ABSOLUTE AUTO 0.19 K/mm3 (0.00-0.68); EOSINOPHILS PERCENT AUTO 2 % (0-6); Hematocrit 32.2 % (33.0-51.0); Hemoglobin 10.6 g/dL (11.5-16.0); IMMATURE GRAN ABSOLUTE AUTO 0.03 K/mm3 (0.00-0.10); IMMATURE GRAN PERCENT AUTO 0 % (0-1); LYMPHOCYTES ABSOLUTE AUTO 1.87 K/mm3 (0.84-5.20); LYMPHOCYTES PERCENT AUTO 21 % (21-46); MONOCYTES ABSOLUTE AUTO 0.60 K/mm3 (0.16-1.47); MONOCYTES PERCENT AUTO 7 % (4-13); Mean Corpuscular HGB Conc 32.9 g/dL (31.5-36.5); Mean Corpuscular Volume 91 fL (80-100); NEUTROPHILS ABSOLUTE AUTO 6.36 K/mm3 (1.96-9.15); NEUTROPHILS PERCENT AUTO 70 % (41-73); NRBC ABSOLUTE 0.00 K/mm3 (0.00-0.02); NRBC Auto 0.0 /100 WBC (0.0-0.2); Platelet Count 410 K/mm3 (150-400); RDW Coefficient Variation 12.4 % (11.7-14.2); RDW Standard Deviation 41.6 fL (35.1-46.3)
[2025-04-30 10:45] LABS: Alanine Aminotransfer (ALT/SGP 16.0 U/L (12-78); Albumin, Blood 3.6 g/dL (3.4-5.0); Albumin/Globulin Ratio 0.9 (0.8-1.8); Anion Gap 8.0 mmol/L (3-11); Aspartate Aminotrans (AST/SGOT 17.0 U/L (12-37); Bilirubin, Total 0.8 mg/dL (0.1-1.0); Blood Urea Nitrogen 19.0 mg/dL (8-24); CO2, Blood 24.0 mmol/L (21-32); Calcium, Blood 8.8 mg/dL (8.5-10.1); Chloride, Blood 110.0 mmol/L (98-108); Creatinine, Blood 1.03 mg/dL (0.40-1.00); Globulin, Blood 4.1 g/dL (2.2-4.0); Glucose, Blood 113.0 mg/dL (70-99); Potassium, Blood 4.3 mmol/L (3.5-5.5); Sodium, Blood 138.0 mmol/L (136-145); Total Protein, Blood 7.7 g/dL (6.4-8.2)
[2025-04-30 11:42] VITALS: BP 121/55
[2025-04-30] MEDS ORDERED: Acetaminophen650 M1 PO (14:38)
[2025-04-30] MEDS ORDERED: CEPH500 PO (14:39)
--- NOTE | 2025-04-30 16:01 | NUR ---
DISCHARGE PATIENT HAD POA PRESENT, WENT OVER DISCHARGE INFORMATION AND ANSWERED QUESTIONS THEY HAD--EDUCATION WAS DONE WITH BOTH POA AND PATIENT. WENT THROUGH THE ROOM WITH THE PATIENT AND VERBALIZED I SEARCHED. IV WAS TAKEN OUT, ESCORTED OUT BY WHEEL CHAIR, NO DISTRESS NOTED, PATIENT PLEASANT AND ALERT.
--- NOTE | 2025-04-30 16:16 | NUR ---
REVIEWED AND AGREE WITH NOTE BY AURA ELLIS.
== END 2025-04-30 16:39 | disposition home or self-care (01) ==
LOC: ER 19:37 → MEDS 19:38 → ERHOLD 19:38 → MEDS 04-29 02:49
PROVIDERS: Emergency Medicine; Family Medicine; ADMIT Internal Medicine
DX: N17.9 Acute kidney failure, unspecified (principal); N39.0 Urinary tract infection, site not specified; I10 Essential (primary) hypertension; E03.9 Hypothyroidism, unspecified; I25.10 Atherosclerotic heart disease of native coronary artery without angina pectoris; E11.51 Type 2 diabetes mellitus with diabetic peripheral angiopathy without gangrene; I70.203 Unspecified atherosclerosis of native arteries of extremities, bilateral legs; G25.81 Restless legs syndrome; E78.5 Hyperlipidemia, unspecified; I69.328 Other speech and language deficits following cerebral infarction; K21.9 Gastro-esophageal reflux disease without esophagitis; K58.0 Irritable bowel syndrome with diarrhea; F32.A Depression, unspecified; Z79.02 Long term (current) use of antithrombotics/antiplatelets; Z79.82 Long term (current) use of aspirin; Z79.890 Hormone replacement therapy; Z79.84 Long term (current) use of oral hypoglycemic drugs; Z79.899 Other long term (current) drug therapy; Z88.5 Allergy status to narcotic agent; Z90.49 Acquired absence of other specified parts of digestive tract
CPT/HCPCS: 36415; 70450; 71046; 80053; 80320; 81001; 82803; 82947; 83605; 83735; 83880; 84100; 84484; 85025; 87086; 92610; 93005; 93010; 96361; 96365; 96372; 96374; 96376; 99285-25; A9270; G0378; J0696; J1650; J7030

== ENCOUNTER 2025-08-07 15:46 | Emergency (ER) | payer MEDICARE ==
[~2025-08-07] VITALS: Ht 165.1 cm; Wt 68.5 kg
[~2025-08-07 15:46] MED LIST changes: +Acetaminophen650 M1 PO; +BASAGLAR K100 UNIT/1 SC; +CEPH500 PO; +CHOLESTYRAMI239.4 G1 PO
[2025-08-07 16:56] VITALS: BP 154/112
[2025-08-07] MEDS ORDERED: Ondansetron HCl 2 MG / ML 2ML Vial IV ONE (17:00)
[2025-08-07] MEDS ORDERED: Pantoprazole Sodium 40 MG Injection IV ONE (17:00)
[2025-08-07 18:13] LABS: BASOPHILS ABSOLUTE AUTO 0.07 K/mm3 (0.00-0.23); BASOPHILS PERCENT AUTO 1 % (0-2); EOSINOPHILS ABSOLUTE AUTO 0.19 K/mm3 (0.00-0.68); EOSINOPHILS PERCENT AUTO 1 % (0-6); Hematocrit 31.0 % (33.0-51.0); Hemoglobin 10.6 g/dL (11.5-16.0); IMMATURE GRAN ABSOLUTE AUTO 0.05 K/mm3 (0.00-0.10); IMMATURE GRAN PERCENT AUTO 0 % (0-1); LYMPHOCYTES ABSOLUTE AUTO 2.93 K/mm3 (0.84-5.20); LYMPHOCYTES PERCENT AUTO 21 % (21-46); MONOCYTES ABSOLUTE AUTO 0.90 K/mm3 (0.16-1.47); MONOCYTES PERCENT AUTO 7 % (4-13); Mean Corpuscular HGB Conc 34.2 g/dL (31.5-36.5); Mean Corpuscular Volume 89 fL (80-100); NEUTROPHILS ABSOLUTE AUTO 9.59 K/mm3 (1.96-9.15); NEUTROPHILS PERCENT AUTO 70 % (41-73); NRBC ABSOLUTE 0.00 K/mm3 (0.00-0.02); NRBC Auto 0.0 /100 WBC (0.0-0.2); Platelet Count 426 K/mm3 (150-400); RDW Coefficient Variation 12.5 % (11.7-14.2); RDW Standard Deviation 40.9 fL (35.1-46.3)
[2025-08-07 18:30] LABS: Alanine Aminotransfer (ALT/SGP 19.0 U/L (12-78); Albumin, Blood 3.8 g/dL (3.4-5.0); Albumin/Globulin Ratio 0.9 (0.8-1.8); Anion Gap 10.0 mmol/L (3-11); Aspartate Aminotrans (AST/SGOT 16.0 U/L (12-37); Bilirubin, Total 1.0 mg/dL (0.1-1.0); Blood Urea Nitrogen 21.0 mg/dL (8-24); CO2, Blood 28.0 mmol/L (21-32); Calcium, Blood 9.4 mg/dL (8.5-10.1); Chloride, Blood 99.0 mmol/L (98-108); Creatinine, Blood 1.16 mg/dL (0.40-1.00); Globulin, Blood 4.2 g/dL (2.2-4.0); Glucose, Blood 99.0 mg/dL (70-99); Potassium, Blood 3.5 mmol/L (3.5-5.5); Sodium, Blood 133.0 mmol/L (136-145); Total Protein, Blood 8.0 g/dL (6.4-8.2)
[2025-08-07 19:33] LABS: Source, Urine Clean Catch
[2025-08-07 19:34] LABS: Bilirubin, Urine Neg (Neg); Color, Urine Yellow (P-Yellow); Glucose Qualitative, Urine Neg (Neg); Ketones, Urine Neg (Neg); Leukocyte Esterase, Urine 1+ (Neg); Protein, Urine 2+ (Neg); Specific Gravity, Urine 1.010 (1.003-1.022); Urobilinogen, Urine NORM (Normal)
[2025-08-07 19:46] LABS: Red Blood Cells, Urine 0-2 /hpf (0-2)
[2025-08-07] MEDS ORDERED: CEPH500 PO (20:28)
[2025-08-07] MEDS ORDERED: ONDA4ODT MM (20:28)
== END 2025-08-07 20:49 | disposition home or self-care (01) ==
LOC: ER 15:46
PROVIDERS: Emergency Medicine
DX: K21.9 Gastro-esophageal reflux disease without esophagitis (principal); N39.0 Urinary tract infection, site not specified; E11.9 Type 2 diabetes mellitus without complications; I10 Essential (primary) hypertension; E03.9 Hypothyroidism, unspecified; G47.33 Obstructive sleep apnea (adult) (pediatric); J45.909 Unspecified asthma, uncomplicated; I69.398 Other sequelae of cerebral infarction; H53.9 Unspecified visual disturbance; E78.5 Hyperlipidemia, unspecified; Z88.5 Allergy status to narcotic agent; Z79.02 Long term (current) use of antithrombotics/antiplatelets; Z79.82 Long term (current) use of aspirin; Z79.890 Hormone replacement therapy; Z79.4 Long term (current) use of insulin; Z79.899 Other long term (current) drug therapy
CPT/HCPCS: 80053; 81001; 83690; 84484; 85025; 87086; 93005; 93010; 96374; 96375; 99284-25; J2405; J2470

== ENCOUNTER → 2025-08-10 | Outpatient (CLI) | payer MEDICARE ==
[~2025-08-10] MED LIST changes: +ONDA4ODT MM
[2025-08-13 22:30] LABS: CALPROTECTIN,FECAL 23 ug/g (<=49)
[2025-08-15 14:05] LABS: PANCREATIC ELASTASE,FECAL 386 ug/g (>=100)
== END ==
LOC: LAB SHORT 13:10 → LAB 13:10
PROVIDERS: Family Medicine
DX: K52.9 Noninfective gastroenteritis and colitis, unspecified (principal)
CPT/HCPCS: 82653; 83993

== ENCOUNTER 2025-08-24 11:42 | Observation (INO) | payer MEDICARE ==
[~2025-08-24] VITALS: Ht 172.7 cm; Wt 74.0 kg
[~2025-08-24 11:42] MED LIST changes: +AMOCLA875 PO; +OMEP20ER PO
[2025-08-24 11:55] LABS: BASOPHILS ABSOLUTE AUTO 0.05 K/mm3 (0.00-0.23); BASOPHILS PERCENT AUTO 0 % (0-2); EOSINOPHILS ABSOLUTE AUTO 0.00 K/mm3 (0.00-0.68); EOSINOPHILS PERCENT AUTO 0 % (0-6); Hematocrit 30.4 % (33.0-51.0); Hemoglobin 10.4 g/dL (11.5-16.0); IMMATURE GRAN ABSOLUTE AUTO 0.09 K/mm3 (0.00-0.10); IMMATURE GRAN PERCENT AUTO 0 % (0-1); LYMPHOCYTES ABSOLUTE AUTO 1.10 K/mm3 (0.84-5.20); LYMPHOCYTES PERCENT AUTO 5 % (21-46); MONOCYTES ABSOLUTE AUTO 0.87 K/mm3 (0.16-1.47); MONOCYTES PERCENT AUTO 4 % (4-13); Mean Corpuscular HGB Conc 34.2 g/dL (31.5-36.5); Mean Corpuscular Volume 87 fL (80-100); NEUTROPHILS ABSOLUTE AUTO 22.42 K/mm3 (1.96-9.15); NEUTROPHILS PERCENT AUTO 91 % (41-73); NRBC ABSOLUTE 0.00 K/mm3 (0.00-0.02); NRBC Auto 0.0 /100 WBC (0.0-0.2); Platelet Count 417 K/mm3 (150-400); RDW Coefficient Variation 12.5 % (11.7-14.2); RDW Standard Deviation 40.2 fL (35.1-46.3)
[2025-08-24 12:12] LABS: Prothrombin Time Results 11.0 Sec (9.7-11.5)
[2025-08-24 12:15] LABS: Alanine Aminotransfer (ALT/SGP 26 U/L (12-78); Albumin, Blood 3.5 g/dL (3.4-5.0); Albumin/Globulin Ratio 0.8 (0.8-1.8); Anion Gap 14 mmol/L (3-11); Aspartate Aminotrans (AST/SGOT 96 U/L (12-37); Bilirubin, Total 1.0 mg/dL (0.1-1.0); Blood Urea Nitrogen 31 mg/dL (8-24); CO2, Blood 19 mmol/L (21-32); Calcium, Blood 8.4 mg/dL (8.5-10.1); Chloride, Blood 102 mmol/L (98-108); Creatinine, Blood 1.45 mg/dL (0.40-1.00); Ethanol (Alcohol), Blood, Med <3 mg/dL; Globulin, Blood 4.4 g/dL (2.2-4.0); Glucose, Blood 207 mg/dL (70-99); Potassium, Blood 3.8 mmol/L (3.5-5.5); Sodium, Blood 131 mmol/L (136-145); Total Protein, Blood 7.9 g/dL (6.4-8.2)
[2025-08-24 13:00] VITALS: BP 196/86
[2025-08-24 13:07] LABS: pH Blood Venous 7.39 (7.34-7.37)
[2025-08-24] MEDS ORDERED: Atropine Sulfate 1% Opth Soln 2ML BTL SL PRN (13:30)
[2025-08-24] MEDS ORDERED: Ondansetron HCl 2 MG / ML 2ML Vial IV PRN (13:35)
[2025-08-24] MEDS ORDERED: FLU VACC TS2025(65UP)/MF59C/PF 45 MCG/0.5 ML SYRINGE IM SCH (13:35)
[2025-08-24] MEDS ORDERED: Morphine Sulfate 10 MG/ML 1MLSYR IV PRN (13:35)
[2025-08-24] MEDS ORDERED: SPIR25 PO (15:14)
--- NOTE | 2025-08-24 19:25 | NUR ---
PT ADMITTED TODAY FOR ACUTE CVA, PLACED ON COMFORT CARE IN ER. PT UNRESPONSIVE ON ADMIT, MOANED IN PAIN LATER IN SHIFT, IV MORPHINE GIVEN WITH GOOD EFFECT. PUREWICK PLACED D/T URINARY INCONTINENCE. LEFT SIDE FLACID, PUPILS UNRESPONSIVE, APHASIA. FREQUENT ROUNDING AND REPOSITIONING.
--- NOTE | 2025-08-25 06:33 | NUR ---
SHIFT SUMMARY Patient is on comfort care and is nonverbal but able to nod or give a thumbs up when asked about pain. Medicated per eMAR. No acute change observed this shift. Repositioned every two hours (Q2H). Bed locked and in lowest position, call light within reach.
--- NOTE | 2025-08-26 06:12 | NUR ---
SHIFT SUMMARY BEDREST, ASSISTED TURNS Q2H, PT USES R EXTREMITIES TO PARTICIPATE. FLACCID LUE/LLE. APHASIA, AND DYSPHAGIA. NPO. TYLENOL OR GIVEN X1 FOR FEVER OF 100.6 F WITH GOOD IMPROVEMENT. PT PREFERS NO ANTIBIOTICS IF INFECTION IS EVIDENT. NICKIE REPLACED THIS AM. PT PREFERS MOUTH MOISTURIZER OVER ICE WATER SPONGE. MORPHINE PER EMAR VIA LHA IV FOR COMFORT CARE PAIN MANAGEMENT, PAIN NOTABLY IN ABDOMEN PER PT GESTURES. A&OX2-3 TO SELF/PERSON AND SOMETIMES SITUATION, ANSWERS QUESTIONS WITH NODDING YES/NO, AND THUMBS UP. PENDING RETURN HOME FOR HOME HOSPICE.
--- NOTE | 2025-08-26 10:30 | NUR ---
COMFORT CARE VISIT: ROUNDED ON PT. SHE WAS SLEEPING, RESTING WITH RR E/U. PAINAD 0/10. pRIMARY RN DENIED ANY NEEDS/CONCERNS AT THIS TIME.
[2025-08-26] MEDS ORDERED: Ativan1 MG PO (11:16)
[2025-08-26] MEDS ORDERED: MORP20L PO (14:16)
--- NOTE | 2025-08-26 14:38 | NUR ---
PATIENT HAS NPO ORDER DUE TO SEVERE DYSPHAGA. SPOUSE IN ROOM ASKING FOR 2 VANILLA MILK SHAKES. LET SPOUSE KNOW STAFF CAN NOT ORDER MILKSHAKES AND PATIENT IS NPO SO [facility] WOULD NOT SEND ONE. SPOUSE ASKED IF HE COULD GO TO [place] AND GET ONE AND FEED THE PATIENT. DISCOURAGED FEEDING PATIENT AT THIS TIME, SPOUSE STATED HE HAS BEEN GIVING HER SIPS OF WATER. CALL PLACED TO MD. WAITING FOR CALL BACK.
--- NOTE | 2025-08-26 18:35 | NUR ---
PATIENT RESTED IN BED THIS SHIFT WITH PLANS FOR DISCHARGE TOMORROW HOME WITH HOSPICE CARE. FAMILY AT BEDSIDE FOR FEW HOURS THIS AFTERNOON. GAVE PATIENT DRINKS OF WATER WHILE IN ROOM. THIS RN MONITORED PAITENT THE PATIENT WAS COUGHING POST DRINKS. MD AWARE. PATIENT TURNED AND REPOSITIONED THRU OUT SHIFT WITH THIS RN AND STAFFING CLERK. NO CONCERNS
--- NOTE | 2025-08-27 06:39 | NUR ---
SHIFT SUMMARY Patient is on comfort care and is nonverbal but able to use fingers to rate pain level, and nod or give a thumbs up when asked about pain. Medicated per eMAR. No acute change observed this shift. Repositioned every two hours (Q2H). Bed is locked and in the lowest position, with the call light within reach.
--- NOTE | 2025-08-27 12:48 | NUR ---
DISCHARGE PATIENT DISCHARGED VIA GURNEY TRANSPORT HOME. [facility] TO MEET AT HOUSE FOR INTAKE. HARD SCRIPTS SENT WITH PATIENT. COPIES IN CHART. BELONGINGS SENT WITH PATIENT. MEDICATIONS SENT TO [facility]. IV REMOVED WITHOUT DIFFICULTY BY MARGO MESA. PAPERWORK GIVEN TO AMBULANCE DRIVERS.
== END 2025-08-27 12:47 | disposition hospice, home (50) ==
LOC: ER 11:42 → MEDS 13:27 → ENPENDDIS 08-26 13:10 → MEDS 08-26 22:46
PROVIDERS: Student in an Organized Health Care Education/Training Program; ADMIT Family Medicine
DX: I63.511 Cerebral infarction due to unspecified occlusion or stenosis of right middle cerebral artery (principal); G81.91 Hemiplegia, unspecified affecting right dominant side; R47.01 Aphasia; R13.10 Dysphagia, unspecified; I10 Essential (primary) hypertension; E03.9 Hypothyroidism, unspecified; E78.5 Hyperlipidemia, unspecified; E11.51 Type 2 diabetes mellitus with diabetic peripheral angiopathy without gangrene; G47.33 Obstructive sleep apnea (adult) (pediatric); Z88.5 Allergy status to narcotic agent; Z79.4 Long term (current) use of insulin; Z79.899 Other long term (current) drug therapy
CPT/HCPCS: 70450; 70496; 70498; 80053; 80320; 82010; 82803; 85025; 85610; 85730; 93005; 93010; 96374; 96375; 96376; 99285-25; A9270; G0378; J2270; Q9967